=== PATIENT | male | born 1955 | race Caucasian/White ===

== ENCOUNTER 2016-08-29 16:41 | Inpatient (IN) ==
[2016-08-29] MEDS ORDERED: DILTIAZEM 25 MG/5 ML VIAL IV ONE (16:52)
[2016-08-29] MEDS ORDERED: DILTIAZEM 125 MG in 0.9 % SODIUM CHLORIDE 100 ML IV SCH (17:00)
--- NOTE | 2016-08-29 17:21 | XRay Report ---
CLINICAL INFORMATION: Arrhythmia TECHNIQUE: Upright AP portable chest x-ray COMPARISON: None. FINDINGS: Lungs are negative. No pulmonary parenchymal infiltrate or mass. Heart size and vascularity are normal. Bessy and mediastinum are negative. No pulmonary congestion or edema. Bessy and mediastinum are negative. No detectable pleural fluid IMPRESSION: Negative AP chest x-ray Interpreted and Authenticated by: Misha Hines 08/29/16
[2016-08-29 17:28] LABS: Basophils # (Auto) 0 K/mcL (0.0-0.3); Basophils % (Auto) 0.1 % (0.0-2.0); Eosinophils # (Auto) 0.2 K/mcL (0.0-0.7); Eosinophils % (Auto) 1.4 % (0.0-7.0); Granulocytes % (Auto) 86.9 % (38.0-78.0); Lymphocytes # (Auto) 0.7 K/mcL (1.5-4.8); Lymphocytes % (Auto) 5.2 % (15.5-49.0); Mean Cell Volume 95.7 fL (80.0-100.0); Mean Corpuscular HGB Conc 33.4 g/dL (31.0-36.0); Monocytes # (Auto) 0.9 K/mcL (0.1-0.9); Monocytes % (Auto) 6.4 % (1.0-9.0); Platelet Count 185 K/mcL (140-440); RBC 4.51 M/mcL (4.50-5.90); Red Cell Distribution Width 13.8 % (11.5-14.5)
[2016-08-29] MEDS ORDERED: ASPIRIN 81 MG TAB.CHEW CHEWED ONE (17:33)
[2016-08-29] MEDS ORDERED: 0.9 % SODIUM CHLORIDE 1,000 ML IV ONE (17:43)
[2016-08-29 17:56] LABS: ALT/SGPT 25 U/l (0-40); Albumin 4.4 gm/dL (3.2-5.2); Albumin/Globulin Ratio 1.8 (1.0-2.3); Alkaline Phosphatase 64 U/L (39-117); Blood Urea Nitrogen 11 mg/dl (8-23); Creatine Kinase 147 IU/L (24-195); Magnesium 1.8 mg/dL (1.6-2.5)
--- NOTE | 2016-08-29 18:20 | Emergency Department Note ---
Arrhythmia/Palpitations HPI - General Chief Complaint: Arrhythmia/Palpitations Stated Complaint: arrythmia Time Seen by Provider: 08/29/16 16:52 Source: patient Mode of arrival: ambulatory Limitations: no limitations - History of Present Illness HPI Narrative: 61-year-old male. He said he's been feeling some palpitations since yesterday. He was seen by Dr. Conner'S's office this morning, and patient was referred over to the ED for possible admission. As his EKG revealed atrial fibrillation.. PT has had no history previous of A. fib in the past. Denies any chest pain. States she's having some edema in his lower extremities.. he is afebrile. He is not on any blood thinners - Related Data Home Medications Medication Instructions Recorded Confirmed Allopurinol [Zylopriim] 300 mg PO ONCE 08/29/16 08/29/16 Losartan/Hydrochlorothiazide 1 each PO 08/29/16 [Losartan-Hctz 100-12.5 mg Tab] Omeprazole [Prilosec] 08/29/16 Sildenafil Citrate [Viagra] 100 mg PO PRN 08/29/16 Testosterone Cypionate 200 mg IM ONCE 08/29/16 08/29/16 [Depo-Testosterone] amLODIPine [Norvasc] 5 mg PO ONCE 08/29/16 08/29/16 Allergies Allergy/AdvReac Type Severity Reaction Status Date / Time No Known Drug Allergies Allergy Verified 08/29/16 16:46 Review of Systems All systems ED: reviewed and negative except as stated. Constitutional: Denies: fever, chills Eyes: Denies: eye pain ENT ED: Denies: ear pain, throat pain Cardiovascular: Reports: palpitations, edema. Denies: chest pain, dyspnea on exertion, orthopnea, syncope Respiratory: Denies: cough, dyspnea Gastrointestinal: Denies: abdominal pain Genitourinary: Denies: urgency Musculoskeletal: Denies: back pain Integumentary: Denies: rash Neurological: Denies: headache Psychiatric: Denies: anxiety Endocrine: Denies: fatigue Hematological/Lymphatic: Denies: easy bleeding Allergic/Immunologic: Denies: facial swelling Past Medical History - Past Medical History Medical history: Reports: GERD, hypertension Surgical history ED: Reports: other (left thumb) - Social History smoking status: Former smoker Alcohol use: Reports: Occasionally Drug use: Reports: none Physical Exam - General Limitations: no limitations General appearance: alert - Head Head exam: atraumatic, normocephalic - Eye Eye exam: Present: normal appearance, PERRL - ENT ENT exam: normal exam, normal oropharynx - Neck Neck exam: Present: normal inspection, full ROM, trachea midline - Chest Chest inspection: Present: normal inspection, symmetric chest wall rise - Respiratory Respiratory exam: Present: normal lung sounds bilaterally, respiratory distress , wheezes - Cardiovascular Cardiovascular exam: Present: regular rate, normal rhythm. Absent: bradycardia , tachycardia - Abdominal Exam Abdominal exam: Present: soft, distention. Absent: tenderness, guarding - Extremities Exam Extremities exam: Present: normal inspection, full ROM - Back Exam Back exam: Present: normal inspection, full ROM - Neurological Exam Neurological exam: Present: alert - Psychiatric Psychiatric exam: Present: normal affect, normal mood - Skin Skin exam: Present: warm, dry Course Vital Signs Temperature 99.6 F 08/29/16 16:42 Pulse Rate 117 H 08/29/16 16:42 Respiratory Rate 18 08/29/16 16:42 Blood Pressure 135/80 08/29/16 16:42 Pulse Oximetry (%) 99 08/29/16 16:42 Temperature 99.6 F 08/29/16 16:42 Pulse Rate 86 08/29/16 18:07 Respiratory Rate 21 08/29/16 18:07 Blood Pressure 107/74 08/29/16 18:07 Pulse Oximetry (%) 97 08/29/16 18:07 Arrhythmia/Palpitations - [facility] Narrative Medical decision making narrative: Patient given rectal exam 10 mg bolus and put on a drip's heart rate is down to the 80s and 90s. Cardiac work up is negative. Chest x-ray normal. Dr. Benjamin contacted. PT to be admitted to telemetry - Lab Data Result diagrams: 08/29/16 16:58 08/29/16 16:58 Lab Results 08/29/16 08/29/16 08/29/16 Range/Units 16:58 16:58 16:58 WBC 13.9 H (4.5-11.0) K/mcL RBC 4.51 (4.50-5.90) M/mcL Hgb 14.4 (13.5-16.5) g/dL Hct 43.1 (41.0-55.0) % MCV 95.7 (80.0-100.0) fL MCH 32.0 (26.0-34.0) pg MCHC 33.4 (31.0-36.0) g/dL RDW 13.8 (11.5-14.5) % Plt Count 185 (140-440) K/mcL MPV 7.4 (7.4-10.4) fL Gran % 86.9 H (38.0-78.0) % Lymph % (Auto) 5.2 L (15.5-49.0) % [place] % (Auto) 6.4 (1.0-9.0) % Eos % (Auto) 1.4 (0.0-7.0) % Baso % (Auto) 0.1 (0.0-2.0) % Gran # 12.1 H (1.8-8.0) K/mcL Lymph # 0.7 L (1.5-4.8) K/mcL [place] # 0.9 (0.1-0.9) K/mcL Eos # 0.2 (0.0-0.7) K/mcL Baso # 0 (0.0-0.3) K/mcL PT 13.2 (11.9-14.5) sec INR 1.0 (0.9-1.1) Sodium 133 (133-145) mmol/L Potassium 3.7 (3.3-5.1) mmol/L Chloride 96 (96-108) mmol/L Carbon Dioxide 24 (22-30) mmol/L Anion Gap 13.0 (8-16) BUN 11 (8-23) mg/dl Creatinine 1.0 (0.7-1.2) mg/dl GFR Calculation 80 Glucose 102 (70-105) mg/dL Calcium 8.7 (8.6-10.4) mg/dl Magnesium 1.8 (1.6-2.5) mg/dL Total Bilirubin 1.2 H (0.0-1.0) mg/dL AST 25 (0-37) U/l ALT 25 (0-40) U/l Alkaline Phosphatase 64 (39-117) U/L Total Creatine Kinase 147 (24-195) IU/L CK-MB (CK-2) 2.0 (0-4.9) ng/ml Troponin T (0-0.03) ng/ml Total Protein 6.9 (5.9-8.4) gm/dL Albumin 4.4 (3.2-5.2) gm/dL Globulin 2.5 (2.2-3.7) gm/dL Albumin/Globulin Ratio 1.8 (1.0-2.3) 08/29/16 Range/Units 16:58 WBC (4.5-11.0) K/mcL RBC (4.50-5.90) M/mcL Hgb (13.5-16.5) g/dL Hct (41.0-55.0) % MCV (80.0-100.0) fL MCH (26.0-34.0) pg MCHC (31.0-36.0) g/dL RDW (11.5-14.5) % Plt Count (140-440) K/mcL MPV (7.4-10.4) fL Gran % (38.0-78.0) % Lymph % (Auto) (15.5-49.0) % [place] % (Auto) (1.0-9.0) % Eos % (Auto) (0.0-7.0) % Baso % (Auto) (0.0-2.0) % Gran # (1.8-8.0) K/mcL Lymph # (1.5-4.8) K/mcL [place] # (0.1-0.9) K/mcL Eos # (0.0-0.7) K/mcL Baso # (0.0-0.3) K/mcL PT (11.9-14.5) sec INR (0.9-1.1) Sodium (133-145) mmol/L Potassium (3.3-5.1) mmol/L Chloride (96-108) mmol/L Carbon Dioxide (22-30) mmol/L Anion Gap (8-16) BUN (8-23) mg/dl Creatinine (0.7-1.2) mg/dl GFR Calculation Glucose (70-105) mg/dL Calcium (8.6-10.4) mg/dl Magnesium (1.6-2.5) mg/dL Total Bilirubin (0.0-1.0) mg/dL AST (0-37) U/l ALT (0-40) U/l Alkaline Phosphatase (39-117) U/L Total Creatine Kinase (24-195) IU/L CK-MB (CK-2) (0-4.9) ng/ml Troponin T < 0.01 (0-0.03) ng/ml Total Protein (5.9-8.4) gm/dL Albumin (3.2-5.2) gm/dL Globulin (2.2-3.7) gm/dL Albumin/Globulin Ratio (1.0-2.3) Disposition Clinical Impression: New onset atrial fibrillation Disposition: Xfer As Inpt ([facility]) Condition: Fair Referrals: Justo Conner DO [Primary Care Provider] -
[2016-08-29] MEDS ORDERED: MAGNESIUM SULFATE 2 GM/50 ML BAG IV PRN (19:52)
[2016-08-29] MEDS ORDERED: ONDANSETRON 4 MG/2 ML VIAL IV PRN (19:52)
[2016-08-29] MEDS ORDERED: POTASSIUM CHLORIDE 40 MEQ in DEXTROSE 5% IN WATER 500 ML IV PRN (19:52)
[2016-08-29] MEDS ORDERED: guaiFENesin/CODEINE 10 ML UDC PO PRN (19:52)
[2016-08-29] MEDS ORDERED: IPRATROPIUM/ALBUTEROL 3 ML AMPUL.NEB NEB PRN (19:52)
[2016-08-29] MEDS: ENOXAPARIN 80 MG/0.8 ML SYRINGE SQ SCH (20:51)
[2016-08-29] MEDS: DOCUSATE SODIUM 100 MG CAPSULE PO SCH (20:58)
[2016-08-29] MEDS: SENNOSIDES/DOCUSATE SODIUM 1 TAB TABLET PO SCH (20:58)
[2016-08-29] MEDS: FLECAINIDE 100 MG TABLET PO SCH ×2 (20:59)
[2016-08-29] MEDS ORDERED: HEPARIN 5,000 UNIT/ML VIAL SQ SCH (21:00)
[2016-08-29] MEDS: METOPROLOL TARTRATE 5 MG/5 ML VIAL IV SCH ×2 (21:35→21:36)
[2016-08-29] MEDS: amLODIPine 5 MG TABLET PO SCH (21:36)
[2016-08-29] MEDS: ALLOPURINOL 300 MG TABLET PO SCH (21:37)
[2016-08-29] MEDS: 0.9 % SODIUM CHLORIDE 10 ML SYRINGE IV SCH (21:38)
--- NOTE | 2016-08-29 22:39 | History and Physical Report ---
DATE OF ADMISSION: 08/29/2016 PRIMARY CARE PHYSICIAN: Justo Conner DO HISTORY OF CHIEF COMPLAINT: Mr. Meyer is a 61-year-old who was referred from primary care physician's office with atrial fibrillation with rapid heart rate, shortness of breath and bilateral lower extremity swelling. In the ER, initial workup was significant for atrial fibrillation with RVR. The patient was started on diltiazem drip. Initial troponins were negative, unclear precipitant. Hospitalist Service was consulted. At the time of examination, the patient is accompanied with his girlfriend and daughter and was able to provide most of the history. He does not appear to be significantly short of breath or in distress. He denies chest pain, fever, recent headache, photophobia, diarrhea, dysuria, or bloody stool. He does endorse to bilateral lower extremity swelling that has worsened since last night. He also endorses to calf tenderness and redness extending up to both ankles, right more than left. He denies binge alcoholism. He denies substance abuse or prior similar episodes of chest palpitations or shortness of breath. He denies recent lower extremity trauma, weight loss, or glandular swelling. REVIEW OF SYSTEMS: Ten-point review of system was performed and negative except the ones discussed above. PAST MEDICAL HISTORY: 1. History of hypertension. 2. History of gout. 3. GERD. CURRENT MEDICATIONS: 1. Losartan 100. 2. Diltiazem 100/12.5. 3. Omeprazole. 4. Allopurinol 300 once. 5. Depo-Testosterone. 6. Amlodipine 5 mg. SOCIAL HISTORY: The patient lives and works in [place]. He is DO NOT RESUSCITATE. No history of smoking. Drinks 2 beers a day. 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 FAMILY HISTORY: Significant for coronary artery disease in mother along with congestive heart failure/arrhythmia. ALLERGIES: NONE SIGNIFICANT. PHYSICAL EXAMINATION: GENERAL: The patient is alert, oriented, in no significant distress. BMI 27. Height 5 feet 10 inches. VITAL SIGNS: Blood pressure 107/74, respiratory rate 21, temperature 98.5. Pulse variable between 80s to 90s, down from 130s. Currently on diltiazem drip. HEENT: Eye movements normal. No ear or nose discharge. Oral cavity dry. NECK: No lymphadenopathy. CHEST: S1, S2, irregular rhythm. No murmur. Diminished breath sounds at bases, but no crackles, adventitious sounds. ABDOMEN: Soft, nontender. LOWER EXTREMITY EXAMINATION: Bilateral lower extremity: Redness around the calf and minimal lymphedema, right more than left, along with ankle swelling, more prominent around the right lateral malleolus. __ ankle movement due to tenderness, but no other joint swelling or erythema. SKIN: No suspicious lesions. PSYCHIATRIC: Alert, cooperative. No anxiety, agitation. NEURO EXAMINATION: Moving all 4 extremities. Limited neuro exam. Normal higher function. LABS AND IMAGING: White count 13.9, hemoglobin 14.4, platelets 185. INR 1. Sodium __, potassium 3.7, creatinine 1, BUN 11. Troponin negative. LFTs unremarkable. X-ray chest: Negative. EKG: Atrial fibrillation with RVR. ASSESSMENT AND PLAN: A 61-year-old admitted with atrial fibrillation with rapid ventricular response. 1. Atrial fibrillation with rapid ventricular response. Continue rate control measures. Attempt cardioversion given onset since last evening on flecainide. Echocardiogram to evaluate chamber size and valvular architecture. Check TSH to rule out other precipitant including pulmonary embolism. Discussed cardioversion with flecainide. If fails until tomorrow afternoon, we will attempt to consult cardiology for electrical cardioversion at [place]. Start full dose anticoagulation now. CHADS score 2. 2. Bilateral lower extremity redness along calf tenderness. Rule out deep vein thrombosis with Doppler ultrasound. Start full dose anticoagulation empiric as likely precipitant for atrial fibrillation. 3. History of hypertension. Continue prior home medications with holding parameters. 4. History of gout. Continue allopurinol. PLAN FOR TODAY: 1. Admit as observation. 2. Telemonitoring. 3. Full dose anticoagulation. 4. Lower extremity Dopplers. 5. Rate control measures along with flecainide for cardioversion. AA:marian Job ID: [id number] Doc ID: [id number] Inocente [email or web address]
[2016-08-29] MEDS: traZODone HCL 50 MG TABLET PO PRN (22:52)
[2016-08-30] MEDS: ACETAMINOPHEN 325 MG TABLET PO PRN ×3 (03:42→17:07)
[2016-08-30] MEDS: 0.9 % SODIUM CHLORIDE 10 ML SYRINGE IV SCH ×3 (04:03→23:01)
[2016-08-30] MEDS ORDERED: DILTIAZEM 125 MG in 0.9 % SODIUM CHLORIDE 100 ML IV SCH (05:00)
[2016-08-30 05:34] LABS: Mean Cell Volume 95.6 fL (80.0-100.0); Mean Corpuscular HGB Conc 33.6 g/dL (31.0-36.0); Mean Corpuscular Hemoglobin 32.1 pg (26.0-34.0); Platelet Count 168 K/mcL (140-440); RBC 4.17 M/mcL (4.50-5.90); Red Cell Distribution Width 13.6 % (11.5-14.5)
--- NOTE | 2016-08-30 06:04 | Ultrasound Report ---
CLINICAL INFORMATION: Lower extremity pain and swelling TECHNIQUE: Grayscale and color flow spectral imaging COMPARISON: None. FINDINGS: Negative examination for deep venous thrombosis. Common femoral vein, superficial femoral vein, popliteal vein are negative bilaterally. Calf veins are negative. Greater and lesser saphenous veins are negative. IMPRESSION: Negative examination for deep venous thrombosis. Interpreted and Authenticated by: Misha Hines 08/30/16
[2016-08-30 06:15] LABS: proBNP 641.9 pg/ml (0-125)
[2016-08-30 06:19] LABS: Free T4 (Free Thyroxine) 1.01 ng/dl (0.7-1.7)
[2016-08-30 06:34] LABS: ALT/SGPT 21 U/l (0-40); Albumin 3.8 gm/dL (3.2-5.2); Albumin/Globulin Ratio 1.5 (1.0-2.3); Alkaline Phosphatase 63 U/L (39-117); Bilirubin,Direct 0.3 mg/dL (0.0-0.3); Blood Urea Nitrogen 12 mg/dl (8-23); Gamma Glutamyl Transpeptidase 113 U/L (8-61); Magnesium 1.9 mg/dL (1.6-2.5); Phosphorous 1.2 mg/dL (2.7-4.5)
[2016-08-30 07:02] LABS: Band Neutrophils % 3 % (0-10); Lymphocytes % 5 % (15-49); Monocytes % (Manual) 4 % (1-9); Platelet Estimate NORMAL (NORMAL); RBC Morphology NORMAL (NORMAL); Segmented Neutrophils % 88 % (38-78)
[2016-08-30] MEDS ORDERED: OMEPRAZOLE 20 MG CAPSULE PO SCH (07:30)
[2016-08-30] MEDS: PANTOPRAZOLE 40 MG TABLET PO SCH ×2 (07:36→17:14)
[2016-08-30] MEDS: MULTIVIT,THER IRON,CA,FA & MIN 1 TABLET PO SCH (08:36)
[2016-08-30] MEDS: DOCUSATE SODIUM 100 MG CAPSULE PO SCH ×2 (08:36→20:30)
[2016-08-30] MEDS: ENOXAPARIN 80 MG/0.8 ML SYRINGE SQ SCH ×2 (08:36→20:30)
[2016-08-30] MEDS ORDERED: VANCOMYCIN PER PHARMACY IV ONE (08:55)
[2016-08-30] MEDS ORDERED: FLECAINIDE 50 MG TABLET PO SCH (09:00)
[2016-08-30] MEDS: NEUTRA PHOS 1 PACKET PO SCH ×2 (10:11→20:31)
[2016-08-30] MEDS: cefTRIAXone 2 GM in DEXTROSE 5% IN WATER 50 ML IV SCH (10:12)
[2016-08-30 10:32] LABS: Appearance,Urine CLEAR; Bacteria,Urine 0 /hpf (0); Bilirubin,Urine NEG (NEG); Color,Urine YELLOW; Glucose,Urine (UA) 50 mg/dL (NEG); Leukocyte Esterase,Urine NEG /uL (NEG); Mucus,Urine FEW /hpf (0); Nitrate,Urine NEG (NEG); Protein,Urine NEG (NEG); Specific Gravity,Urine 1.026 (1.000-1.035); Urine Blood 0.03 mg/dL (<0.03); Urine RBC 2 /hpf (0-1); Urine Squamous Epithelial Cell < 1 /hpf (0-4); Urine Transitional Epi Cells < 1 /hpf (0-2); Urine WBC 2 /hpf (0-4); Urobilinogen,Urine NEG (NEG)
[2016-08-30] MEDS: VANCOMYCIN 1,250 MG in 0.9 % SODIUM CHLORIDE 500 ML IV SCH ×2 (10:42→20:31)
--- NOTE | 2016-08-30 11:08 | Internal Med Progress Note ---
Medical - PN: Subj Patient information: Note initiated : 08/30/16 at 11:05 am Service Date, if different from initiated Date: [] Patient: Panda Meyer 61 y/o M admitted on 08/29/16 for Arrythmia/AFib with RVR. Chief Complaint: [] Interval history: 08/29- patient admitted with lower extremity swelling pain and chest palpitation. A. fib RVR started on diltiazem drip. New onset within 48 hours. On full dose anticoagulation. We will attempt cardioversion on flecainide. No S3 Dopplers to rule out DVT. White count 13,000 unclear source. Cultures/ UA. Patient admitted to telemetry. Heart failure improved on diltiazem drip from 140s to mid 80s 08/30-Doppler lower extremity unremarkable for DVT. White count at 14,000. Blood cultures pending. Empiric antibiotics vancomycin and Rocephin. Overnight MAXIMUM TEMPERATURE 102. Patient denies any other symptoms including diarrhea dysuria abdominal pain chest pain nausea. Family at bedside. Status post flecainide but persistent A. fib on telemetry. We'll attempt electrical cardioversion at [place] if patient fails to respond to flecainide. Aggressive source evaluation for sepsis - Constitutional Vitals: Vital Signs Temp Pulse Resp BP Pulse Ox 100.3 F H 91 H 18 130/73 94 08/30/16 10:52 08/30/16 10:00 08/30/16 10:52 08/30/16 10:52 08/30/16 10:52 Period Temp Pulse Resp BP Sys/Moralez Pulse Ox Last 24 Hr 98.2 F-102.3 F 76-105 16-22 92-130/56-76 93-98 Intake and Output 08/29/16 08/30/16 08/30/16 21:59 05:59 13:59 Intake Total 240 / 240 Output Total 550 / 550 500 / 500 Balance -550 / -293 -260 / -260 Weight 193 lb Intake & Output: Intake & Output 08/29/16 08/30/16 08/30/16 21:59 05:59 13:59 Intake Total 240 / 240 Output Total 550 / 550 500 / 500 Balance -550 / -293 -260 / -260 Weight 193 lb Intake: Oral 240 / 240 Output: Void Amount 550 / 550 500 / 500 Other: # Bowel Movements 1 General appearance: cooperative, no acute distress Exam: alert oriented telemetry A. fib Nonlabored breathing Nondistended abdomen Redness and erythema bilateral lower extremity below the knee up to ankle along with minimal emphysema No anxiety Medical - PN: Obj Da - Labs CBC & Chem 7: 08/30/16 04:15 08/30/16 04:15 Labs: Abnormal Lab Results 08/30/16 08/30/16 08/30/16 09:51 04:15 04:15 WBC 14.0 H RBC 4.17 L Hgb 13.4 L Hct 39.9 L Seg Neutrophils % 88 H Lymphocytes % 5 L Carbon Dioxide 21 L Glucose 122 H Calcium 8.4 L Phosphorus 1.2 L Total Bilirubin 1.2 H GGT 113 H NT-Pro-B Natriuret Pep 641.9 H Urine Glucose (UA) 50 A Urine Ketones 20 A Urine Occult Blood 0.03 A Urine RBC 2 H Meds: Medications Acetaminophen (Tylenol) 650 mg PO Q4-6HP PRN PRN Reason: PAIN/FEVER > 101 Last Admin: 08/30/16 03:42 Dose: 650 mg Albuterol/Ipratropium (Duoneb) 3 ml NEB Q4HP PRN PRN Reason: Shortness Of Breath Allopurinol (Zylopriim) 300 mg PO ONCE [facility] Last Admin: 08/29/16 21:37 Dose: Not Given Amlodipine Besylate (Norvasc) 5 mg PO ONCE [facility] Last Admin: 08/29/16 21:36 Dose: Not Given Docusate Sodium (Colace) 100 mg PO BID [facility] Last Admin: 08/30/16 08:36 Dose: 100 mg Enoxaparin Sodium (Lovenox) 80 mg SQ BID [facility] Last Admin: 08/30/16 08:36 Dose: 80 mg Flecainide Acetate (Tambocor) 100 mg PO Q12 [facility] Last Admin: 08/30/16 08:39 Dose: 100 mg Guaifenesin/Codeine Phosphate (Robitussin Ac) 10 ml PO Q4HP PRN PRN Reason: Cough Diltiazem HCl 125 mg/ Sodium (Chloride) 125 mls @ 5 mls/hr IV Q12H ESTHER; 5 MG/HR PRN Reason: Protocol Last Admin: 08/30/16 04:03 Dose: Not Given Potassium Chloride 40 meq/ (Dextrose) 520 mls @ 130 mls/hr IV UD PRN PRN Reason: K+ = or < 3.5 Last Admin: 08/30/16 07:35 Dose: 130 mls/hr Magnesium Sulfate (Magnesium Sulfate) 2 gm in 50 mls @ 50 mls/hr IV UD PRN PRN Reason: MG = or < 1.7 Ceftriaxone Sodium 2 gm/ (Dextrose) 50 mls @ 100 mls/hr IV Q24H [facility] Last Admin: 08/30/16 10:12 Dose: 100 mls/hr Vancomycin HCl 1,250 mg/ (Sodium Chloride) 500 mls @ 250 mls/hr IV Q12 [facility] Last Admin: 08/30/16 10:42 Dose: 333.3 mls/hr Iron Carb/Multivit/Esto/Folic Acid (Multivitamin W/Minerals) 1 tab PO DAILY [facility] Last Admin: 08/30/16 08:36 Dose: 1 tab Ondansetron HCl (Zofran) 4 mg IV Q4-6HP PRN PRN Reason: Nausea And Vomiting Pantoprazole Sodium (Protonix) 40 mg PO BIDAC [facility] Last Admin: 08/30/16 07:36 Dose: 40 mg Potassium/Phosphorus/Sodium (Neutra Phos) 2 packet PO BID [facility] Last Admin: 08/30/16 10:11 Dose: 2 packet Senna/Docusate Sodium (Senna Plus Tablet) 1 tab PO HS [facility] Last Admin: 08/29/16 20:58 Dose: 1 tab Sodium Chloride (Saline Flush) 10 ml IV Q8 [facility] Last Admin: 08/30/16 04:03 Dose: Not Given Trazodone HCl (Desyrel) 50 mg PO HSP PRN PRN Reason: Insomnia Last Admin: 08/29/16 22:52 Dose: 50 mg Medical - PN: A/P - Time Spent With Patient Total time spent is greater than 50% in coordination of care (as documented) at patient's floor/unit and/or counseling patient: 25 - 35 minutes (1) Atrial fibrillation with RVR Status: Acute Assessment and plan: * new onset atrial fibrillationwith RVR-rate controlled on diltiazem drip. Started on flecainide for cardioversion. Continue full dose anticoagulation * sepsis-unclear source. Cultures pending. Influenza negative. Empiric antibiotic coverage. White count 14,000 * Bilateral lower extremity redness- negative DVT. * hypertension-meds on hold. On calcium channel neftaly drip * history of gout continue allopurinol * DNR Plan * continue antibiotics * Sepsis source evaluation * If chemical cardioversion fails transfer to [place] for electrical cardioversion/cardio consult * Current Visit: Yes Medical - PN: Qual - VTE Deep Vein Thrombosis/Pulmonary Embolism Present on Admission: No
[2016-08-30] MEDS ORDERED: IOPAMIDOL 100 ML BOTTLE IV ONE (13:30)
--- NOTE | 2016-08-30 13:42 | Cat Scan Report ---
CLINICAL INFORMATION: Dyspnea. COMPARISON: Chest x-ray dated 08/29/2016 TECHNIQUE: Axial images obtained through the chest. 80 mL nonionic intravenous contrast administration was administered, and scanning was performed during pulmonary arterial phase. Sagittally and coronally reformatted images were obtained. MIP reformatted images. FINDINGS: Main pulmonary artery, right pulmonary, left pulmonary artery are negative. No intraluminal filling defects. No lobar, segmental, or subsegmental defects. Mild linear densities at both lung bases consistent with atelectasis or scarring. Lungs are otherwise negative. No focal consolidation. No evidence for neoplasm. No hilar or mediastinal adenopathy. There are coronary artery calcifications. No pleural fluid. No pericardial fluid. No axillary adenopathy. Images through the upper abdomen are negative. IMPRESSION: Negative pulmonary CTA Interpreted and Authenticated by: Misha Hines 08/30/16
[2016-08-30] MEDS: AMIODARONE 150 MG in DEXTROSE 5% IN WATER 50 ML IV ONE ×2 (15:07→17:12)
[2016-08-30] MEDS ORDERED: AMIODARONE HCL 450 MG in DEXTROSE 5% IN WATER (NON-PVC) 241 ML IV SCH ×2 (15:30→21:30)
[2016-08-30] MEDS: SENNOSIDES/DOCUSATE SODIUM 1 TAB TABLET PO SCH (20:30)
[2016-08-30] MEDS: ALLOPURINOL 300 MG TABLET PO SCH (20:30)
[2016-08-30] MEDS: amLODIPine 5 MG TABLET PO SCH (20:32)
[2016-08-30] MEDS ORDERED: PROPOFOL 0 ML IV ONE (23:06)
[2016-08-31 05:49] LABS: Mean Cell Volume 97.1 fL (80.0-100.0); Mean Corpuscular HGB Conc 33.7 g/dL (31.0-36.0); Mean Corpuscular Hemoglobin 32.7 pg (26.0-34.0); Platelet Count 134 K/mcL (140-440); RBC 3.92 M/mcL (4.50-5.90); Red Cell Distribution Width 13.7 % (11.5-14.5)
[2016-08-31 06:33] LABS: ALT/SGPT 17 U/l (0-40); Albumin 3.3 gm/dL (3.2-5.2); Albumin/Globulin Ratio 1.2 (1.0-2.3); Alkaline Phosphatase 60 U/L (39-117); Bilirubin,Direct 0.3 mg/dL (0.0-0.3); Blood Urea Nitrogen 9 mg/dl (8-23); Gamma Glutamyl Transpeptidase 132 U/L (8-61); Magnesium 2.1 mg/dL (1.6-2.5); Phosphorous 2.2 mg/dL (2.7-4.5); Uric Acid 3.8 mg/dL (2.5-8.0)
[2016-08-31] MEDS: PANTOPRAZOLE 40 MG TABLET PO SCH ×2 (07:17→17:22)
[2016-08-31] MEDS: 0.9 % SODIUM CHLORIDE 10 ML SYRINGE IV SCH ×3 (07:17→20:58)
--- NOTE | 2016-08-31 07:22 | XRay Report ---
CLINICAL INFORMATION: Arrhythmia. Atrial fibrillation. Possible congestive heart failure. TECHNIQUE: AP portable chest x-ray COMPARISON: Previous chest x-ray dated 08/29/2016 FINDINGS: Lungs are negative. No parenchymal infiltrate or mass. Heart size and vascularity are normal. No pulmonary congestion. No pulmonary edema. No interval change IMPRESSION: Negative AP chest x-ray Interpreted and Authenticated by: Misha Hines 08/31/16
[2016-08-31 07:50] LABS: Band Neutrophils % 7 % (0-10); Lymphocytes % 8 % (15-49); Monocytes % (Manual) 4 % (1-9); Platelet Estimate NORMAL (NORMAL); RBC Morphology NORMAL (NORMAL); Segmented Neutrophils % 81 % (38-78)
[2016-08-31] MEDS: cefTRIAXone 2 GM in DEXTROSE 5% IN WATER 50 ML IV SCH (09:00)
[2016-08-31] MEDS: ENOXAPARIN 80 MG/0.8 ML SYRINGE SQ SCH ×2 (09:23→20:22)
[2016-08-31] MEDS: DOCUSATE SODIUM 100 MG CAPSULE PO SCH ×2 (09:23→20:22)
[2016-08-31] MEDS: VANCOMYCIN 1,250 MG in 0.9 % SODIUM CHLORIDE 500 ML IV SCH ×2 (09:23→20:58)
[2016-08-31] MEDS: MULTIVIT,THER IRON,CA,FA & MIN 1 TABLET PO SCH (09:23)
[2016-08-31] MEDS: NEUTRA PHOS 1 PACKET PO SCH ×2 (09:23→20:21)
--- NOTE | 2016-08-31 10:30 | Echocardiogram Report ---
ECHOCARDIOGRAM: 2-D and M-mode echocardiography with cardiac Doppler and color flow imaging were performed with a [employer]io MX. Indication is new onset atrial fibrillation. Overall size of the RA, RV, LV, and aortic root appeared normal. LV wall thickness appeared high normal. Systolic performance appeared normal. Estimated ejection fraction is 65%. The LA appeared mildly enlarged. The aortic valve appeared trileaflet and normal. There was no evidence for aortic stenosis by Doppler interrogation. Aortic regurgitation, probably mild (1+), was demonstrated. The mitral and tricuspid valves appeared unremarkable. Doppler interrogation of LV inflow disclosed a monophasic spectral dispersion pattern related to absent AV synchrony. Mitral regurgitation, probably moderate, (2+), was noted. Color flow imaging disclosed the regurgitant jet cling to the atrial aspect of the anterior leaflet. Pulmonary venous interrogation disclosed ''d'' wave dominance indicating elevated pulmonary wedge pressure. The pulmonic valve was not visualized. Pulmonary artery acceleration time appeared shortened. There was no evidence for pulmonic stenosis. Pulmonic regurgitation and tricuspid regurgitation, both probably mild (1+), were noted. No intracardiac shunting was appreciated. There was no evidence for pericardial effusion. The IVC was dilated and did not vary with the respiratory cycle indicating raised CVP. Calculated estimate of PA systolic pressure is moderately elevated at 45-50 mmHg. Atrial fibrillation with a moderate response was present. CONCLUSION:Aortic regurgitation, probably mild (1+). Eccentric/anteriorly directed mitral regurgitation, probably moderate (2+), with mild LA enlargement, elevated pulmonary wedge pressure, moderate and probably passive pulmonary hypertension, and raised CVP. (See accompanying M-mode and Doppler reports for quantitation.) ECHOCARDIOGRAPHY M-MODE CALCULATIONS: HT: 70'' WT: 193 BSA: 2.06 m2 NORMALS AORTA: AORTIC ROOT 3.5 2.0-3.7 cm LEFT ATRIUM 5.0 1.9-4.0 cm MITRAL VALVE: EXCURSION 2.1 1.9-2.7 cm EPSS 0.3 <0.5 cm LT VENTRICLE: LVID (ED) 4.8 3.5-5.7 cm LVID (ES) 3.2 SEPTAL THICKNESS 1.2 0.6-1.1 cm SEPTAL EXCURSION 0.4 0.3-0.8 cm LVPW THICKNESS 1.1 0.6-1.1 cm LVPW EXCURSION 1.0 0.9-1.4 cm MINOR AXIS FS 3.3 25%-40% RT VENTRICLE: RVID (ED) -- 0.9-2.6 cm(up to 3cm if LLD) QUALITATIVE DOPPLER FLOW STUDIES MITRAL VALVE MR, probably moderate (2+) AORTIC VALVE AR, probably mild (1+) TRICUSPID VALVE TR, probably mild (1+) PULMONIC VALVE NC, probably mild (1+) QUANTITATIVE DOPPLER FLOW STUDIES SAMPLE SITES VELOCITIES PEAK PRESSURE VALVE AREA and/or VALVE WINDOW (PEAK,M/SEC) DROP (GRADIENT) PRESSURE HALF-TIME MV (Diastole) 1.6 -- -- MV (Systole) 4.0 -- -- AO (Diastole) 3.3 -- 420 msec AO (Systole) 1.2 -- -- TV (Systole) 2.5 -- -- PV (Systole) 1.0 -- -- PV (Diastole) 1.7 LWG:lidia Job ID: [id number] Doc ID: [id number] Alistair Julian MD
--- NOTE | 2016-08-31 12:56 | XRay Report ---
CLINICAL INFORMATION: Abdominal pain TECHNIQUE: AP, supine abdomen COMPARISON: None. FINDINGS: Gas and fecal material within the colon. No dilated gas-filled small bowel. No pneumatosis. No biliary or portal venous gas. No pathologic calcifications. IMPRESSION: Negative supine abdomen Interpreted and Authenticated by: Misha Hines 08/31/16
[2016-08-31] MEDS: WARFARIN 5 MG TABLET PO SCH (17:22)
[2016-08-31 19:37] LABS: Amylase 40 U/L (28-100); Lipase 41 U/L (7-60)
[2016-08-31] MEDS: amLODIPine 5 MG TABLET PO SCH (20:22)
[2016-08-31] MEDS: METOPROLOL TARTRATE 25 MG TABLET PO SCH (20:22)
[2016-08-31] MEDS: ALLOPURINOL 300 MG TABLET PO SCH (20:23)
[2016-08-31] MEDS: SENNOSIDES/DOCUSATE SODIUM 1 TAB TABLET PO SCH (20:25)
[2016-08-31] MEDS: traZODone HCL 50 MG TABLET PO PRN (20:25)
[2016-08-31] MEDS: ACETAMINOPHEN 325 MG TABLET PO PRN (23:10)
[2016-09-01] MEDS: 0.9 % SODIUM CHLORIDE 10 ML SYRINGE IV SCH (05:55)
[2016-09-01 06:14] LABS: Mean Cell Volume 96.8 fL (80.0-100.0); Mean Corpuscular HGB Conc 33.5 g/dL (31.0-36.0); Mean Corpuscular Hemoglobin 32.4 pg (26.0-34.0); Platelet Count 180 K/mcL (140-440); RBC 4.12 M/mcL (4.50-5.90); Red Cell Distribution Width 13.8 % (11.5-14.5)
[2016-09-01 06:55] LABS: ALT/SGPT 19 U/l (0-40); Albumin 3.3 gm/dL (3.2-5.2); Albumin/Globulin Ratio 1.1 (1.0-2.3); Alkaline Phosphatase 81 U/L (39-117); Bilirubin,Direct < 0.2 mg/dL (0.0-0.3); Blood Urea Nitrogen 7 mg/dl (8-23); Gamma Glutamyl Transpeptidase 176 U/L (8-61); Magnesium 2.1 mg/dL (1.6-2.5); Phosphorous 3.3 mg/dL (2.7-4.5)
[2016-09-01 07:00] LABS: Band Neutrophils % 2 % (0-10); Basophils % (Manual) 1 % (0-2); Eosinophils % (Manual) 4 % (0-7); Lymphocytes % 13 % (15-49); Monocytes % (Manual) 11 % (1-9); Myelocytes % 1 % (0-0); Platelet Estimate NORMAL (NORMAL); RBC Morphology NORMAL (NORMAL); Segmented Neutrophils % 67 % (38-78)
[2016-09-01] MEDS ORDERED: IOPAMIDOL 100 ML BOTTLE IV ONE (08:46)
[2016-09-01] MEDS: MULTIVIT,THER IRON,CA,FA & MIN 1 TABLET PO SCH (09:08)
[2016-09-01] MEDS: ENOXAPARIN 80 MG/0.8 ML SYRINGE SQ SCH (09:08)
[2016-09-01] MEDS: METOPROLOL TARTRATE 25 MG TABLET PO SCH (09:08)
[2016-09-01] MEDS: cefTRIAXone 2 GM in DEXTROSE 5% IN WATER 50 ML IV SCH (09:09)
[2016-09-01] MEDS: NEUTRA PHOS 1 PACKET PO SCH (09:09)
[2016-09-01] MEDS: PANTOPRAZOLE 40 MG TABLET PO SCH (09:09)
[2016-09-01] MEDS: VANCOMYCIN 1,250 MG in 0.9 % SODIUM CHLORIDE 500 ML IV SCH (09:10)
--- NOTE | 2016-09-01 09:46 | Cat Scan Report ---
CLINICAL INFORMATION: Right upper quadrant pain COMPARISON: None. TECHNIQUE: Axial images were obtained through the abdomen and pelvis. Sagittally and coronally reformatted images. 80 mL nonionic contrast material injected intravenously. Oral contrast material was administered FINDINGS: Lung bases are negative. No parenchymal consolidation. There is mild bilateral dependent atelectasis. No hiatal hernia. No significant pleural effusion. No pericardial effusion. No calcified gallstones. There is mild pericholecystic inflammatory change suggesting possible cholecystitis. Gallbladder ultrasound is recommended. Common bile duct measures 7 to 8 mm. No detectable choledocholithiasis. No intrahepatic bile duct dilatation. Negative liver. No focal intrahepatic abnormality. Normal smooth liver contour. Spleen is negative. No splenomegaly. Normal enhancement splenic and portal veins. Negative pancreas. No pancreatic mass. No peripancreatic abnormality. Negative adrenal glands. Kidneys are negative. No solid or cystic mass. No hydronephrosis. There is contrast material within small and large bowel. There is mild infiltration of pericecal fat. Appendix is negative. Appendix is filled with contrast. Findings are not consistent with appendicitis there are small pericecal lymph nodes. Largest node measures 12 mm. Mesenteric adenitis tip occurs in children although can be seen in adults as well. Urinary bladder is distended. No bladder calculus. No detectable mass. No free peritoneal fluid. No localized fluid collections. No pneumoperitoneum. No biliary or portal venous gas. No diverticulitis. Lumbar spine is negative. No compression deformities. There is calcified plaque in the abdominal aorta. No abdominal aortic aneurysm. IMPRESSION: 1. Mild pericholecystic inflammatory change. Prominent common bile duct. Recommend gallbladder ultrasound as above 2. Prominent lymph nodes in the right lower quadrant. Mesenteric adenitis suspected Interpreted and Authenticated by: Misha Hines 09/01/16
--- NOTE | 2016-09-01 10:27 | Internal Med Progress Note ---
Medical - PN: Subj Patient information: Note initiated : 08/31/16 at 19:24 am Patient: Panda Meyer 61 y/o M admitted on 08/29/16 for Arrythmia/AFib with RVR. Interval history: 08/29- patient admitted with lower extremity swelling pain and chest palpitation. A. fib RVR started on diltiazem drip. New onset within 48 hours. On full dose anticoagulation. We will attempt cardioversion on flecainide. No S3 Dopplers to rule out DVT. White count 13,000 unclear source. Cultures/ UA. Patient admitted to telemetry. Heart failure improved on diltiazem drip from 140s to mid 80s 08/30-Doppler lower extremity unremarkable for DVT. White count at 14,000. Blood cultures pending. Empiric antibiotics vancomycin and Rocephin. Overnight MAXIMUM TEMPERATURE 102. Patient denies any other symptoms including diarrhea dysuria abdominal pain chest pain nausea. Family at bedside. Status post flecainide but persistent A. fib on telemetry. We'll attempt electrical cardioversion at [place] if patient fails to respond to flecainide. Aggressive source evaluation for sepsis 08/31- patient doing well. Complains of right upper quadrant tenderness. Persistent A. fib however rate controlled on amiodarone load. Echocardiogram reveals EF 60%however pulmonary artery pressures around 50 and graded to MR. Started on Coumadin. In light of asymptomatic A. fib it is unclear whether patient has had paroxysmal or long-standing A. fib and therefore electrical cardioversion should be avoided. We will discontinue amiodarone and see initiate beta neftaly while continuing anticoagulation for CVA prophylaxis. Patient will need cardiology follow-up and evaluation electrical cardioversion after a minimum of [address] abdomen to rule out right upper quadrant pathology - Constitutional Vitals: Vital Signs Temp Pulse Resp BP Pulse Ox 97.8 F 92 H 18 129/86 93 09/01/16 08:00 09/01/16 08:00 09/01/16 08:00 09/01/16 08:00 09/01/16 08:00 Period Temp Pulse Resp BP Sys/Moralez Pulse Ox Last 24 Hr 97.2 F-98.9 F 79-96 18-20 120-142/64-98 91-95 Intake and Output 08/31/16 09/01/16 09/01/16 21:59 05:59 13:59 Intake Total 250 / 250 980 / 980 1020 / 1020 Balance 250 / 250 980 / 980 1020 / 1020 Weight 197 lb Intake & Output: Intake & Output 08/31/16 09/01/16 09/01/16 21:59 05:59 13:59 Intake Total 250 / 250 980 / 980 1020 / 1020 Balance 250 / 250 980 / 980 1020 / 1020 Weight 197 lb Intake: IV 250 / 250 500 / 500 Amiodarone HCl 450 mg In 250 / 250 Dextrose 5% in Water (Non -Pvc) 241 ml @ 0.5 MG/MIN 16.66 mls/hr IV ONCE [facility] Rx#:[id number] Vancomycin 1,250 mg In 500 / 500 Sodium Chloride 0.9% 500 ml @ 250 mls/hr IV Q12 [facility] Rx#:[id number] Oral 480 / 480 1020 / 1020 Other: # Voids 2 # Bowel Movements 1 Medical - PN: Obj Da - Labs CBC & Chem 7: 09/01/16 04:10 09/01/16 04:10 Labs: Abnormal Lab Results 09/01/16 09/01/16 08/31/16 04:10 04:10 04:05 WBC RBC 4.12 L Hgb 13.4 L Hct 39.9 L Plt Count Seg Neutrophils % Lymphocytes % 13 L Monocytes % (Manual) 11 H Myelocytes % 1 H Carbon Dioxide 21 L BUN 7 L Glucose Calcium 8.4 L 8.0 L Phosphorus 2.2 L Total Bilirubin GGT 176 H 132 H NT-Pro-B Natriuret Pep Urine Glucose (UA) Urine Ketones Urine Occult Blood Urine RBC 08/31/16 08/30/16 08/30/16 04:05 09:51 04:15 WBC RBC 3.92 L Hgb 12.8 L Hct 38.0 L Plt Count 134 L Seg Neutrophils % 81 H Lymphocytes % 8 L Monocytes % (Manual) Myelocytes % Carbon Dioxide 21 L BUN Glucose 122 H Calcium 8.4 L Phosphorus 1.2 L Total Bilirubin 1.2 H GGT 113 H NT-Pro-B Natriuret Pep 641.9 H Urine Glucose (UA) 50 A Urine Ketones 20 A Urine Occult Blood 0.03 A Urine RBC 2 H 08/30/16 04:15 WBC 14.0 H RBC 4.17 L Hgb 13.4 L Hct 39.9 L Plt Count Seg Neutrophils % 88 H Lymphocytes % 5 L Monocytes % (Manual) Myelocytes % Carbon Dioxide BUN Glucose Calcium Phosphorus Total Bilirubin GGT NT-Pro-B Natriuret Pep Urine Glucose (UA) Urine Ketones Urine Occult Blood Urine RBC Meds: Medications Acetaminophen (Tylenol) 650 mg PO Q4-6HP PRN PRN Reason: PAIN/FEVER > 101 Last Admin: 08/31/16 23:10 Dose: 650 mg Albuterol/Ipratropium (Duoneb) 3 ml NEB Q4HP PRN PRN Reason: Shortness Of Breath Allopurinol (Zylopriim) 300 mg PO ONCE [facility] Last Admin: 08/31/16 20:23 Dose: Not Given Amlodipine Besylate (Norvasc) 5 mg PO ONCE [facility] Last Admin: 08/31/16 20:22 Dose: Not Given Docusate Sodium (Colace) 100 mg PO BID [facility] Last Admin: 08/31/16 20:22 Dose: 100 mg Enoxaparin Sodium (Lovenox) 80 mg SQ BID [facility] Last Admin: 09/01/16 09:08 Dose: 80 mg Guaifenesin/Codeine Phosphate (Robitussin Ac) 10 ml PO Q4HP PRN PRN Reason: Cough Potassium Chloride 40 meq/ (Dextrose) 520 mls @ 130 mls/hr IV UD PRN PRN Reason: K+ = or < 3.5 Last Infusion: 08/30/16 12:00 Dose: Infused Magnesium Sulfate (Magnesium Sulfate) 2 gm in 50 mls @ 50 mls/hr IV UD PRN PRN Reason: MG = or < 1.7 Ceftriaxone Sodium 2 gm/ (Dextrose) 50 mls @ 100 mls/hr IV Q24H [facility] Last Admin: 09/01/16 09:09 Dose: 100 mls/hr Vancomycin HCl 1,250 mg/ (Sodium Chloride) 500 mls @ 250 mls/hr IV Q12 [facility] Last Admin: 09/01/16 09:10 Dose: 250 mls/hr Iron Carb/Multivit/[place]/Folic Acid (Multivitamin W/Minerals) 1 tab PO DAILY [facility] Last Admin: 09/01/16 09:08 Dose: 1 tab Metoprolol Tartrate (Lopressor) 25 mg PO BID [facility] Last Admin: 09/01/16 09:08 Dose: 25 mg Ondansetron HCl (Zofran) 4 mg IV Q4-6HP PRN PRN Reason: Nausea And Vomiting Pantoprazole Sodium (Protonix) 40 mg PO BIDAC [facility] Last Admin: 09/01/16 09:09 Dose: 40 mg Potassium/Phosphorus/Sodium (Neutra Phos) 2 packet PO BID [facility] Last Admin: 09/01/16 09:09 Dose: 2 packet Senna/Docusate Sodium (Senna Plus Tablet) 1 tab PO HS [facility] Last Admin: 08/31/16 20:25 Dose: Not Given Sodium Chloride (Saline Flush) 10 ml IV Q8 [facility] Last Admin: 09/01/16 05:55 Dose: 10 ml Trazodone HCl (Desyrel) 50 mg PO HSP PRN PRN Reason: Insomnia Last Admin: 08/31/16 20:25 Dose: 50 mg Warfarin Sodium (Coumadin) 5 mg PO DAILY@1400 [facility] Last Admin: 08/31/16 17:22 Dose: 5 mg Medical - PN: A/P - Time Spent With Patient Total time spent is greater than 50% in coordination of care (as documented) at patient's floor/unit and/or counseling patient: 25 - 35 minutes (1) Atrial fibrillation with RVR Status: Acute Assessment and plan: * Atrial fibrillationwith RVR-discontinue amiodarone. continue anticoagulation for minimum of 4 weeks prior to cardioversion. Start a low-dose beta neftaly. Echocardiogram grade 2 MR. pulmonary artery pressure 50. Normal EF * Sepsis- await abdominal CT for right upper quadrant pain. White count at 10, 000. Afebrile * Hypertension-meds on hold. ystolics around 120s * history of gout continue allopurinol * DNR Plan * CT abdomen * low-dose beta neftaly * anticoagulation * Delay cardioversion for 4 weeks due to risk of stroke Current Visit: Yes Medical - PN: Qual - VTE Deep Vein Thrombosis/Pulmonary Embolism Present on Admission: No
--- NOTE | 2016-09-01 10:32 | Internal Med Progress Note ---
Medical - PN: Subj Patient information: Note initiated : 09/01/16 at 10:30 am Service Date, if different from initiated Date: [] Patient: Panda Meyer 61 y/o M admitted on 08/29/16 for Arrythmia/AFib with RVR. Chief Complaint: [] Interval history: 08/29- patient admitted with lower extremity swelling pain and chest palpitation. A. fib RVR started on diltiazem drip. New onset within 48 hours. On full dose anticoagulation. We will attempt cardioversion on flecainide. No S3 Dopplers to rule out DVT. White count 13,000 unclear source. Cultures/ UA. Patient admitted to telemetry. Heart failure improved on diltiazem drip from 140s to mid 80s 08/30-Doppler lower extremity unremarkable for DVT. White count at 14,000. Blood cultures pending. Empiric antibiotics vancomycin and Rocephin. Overnight MAXIMUM TEMPERATURE 102. Patient denies any other symptoms including diarrhea dysuria abdominal pain chest pain nausea. Family at bedside. Status post flecainide but persistent A. fib on telemetry. We'll attempt electrical cardioversion at [place] if patient fails to respond to flecainide. Aggressive source evaluation for sepsis 08/31- patient doing well. Complains of right upper quadrant tenderness. Persistent A. fib however rate controlled on amiodarone load. Echocardiogram reveals EF 60%however pulmonary artery pressures around 50 and graded to MR. Started on Coumadin. In light of asymptomatic A. fib it is unclear whether patient has had paroxysmal or long-standing A. fib and therefore electrical cardioversion should be avoided. We will discontinue amiodarone and see initiate beta neftaly while continuing anticoagulation for CVA prophylaxis. Patient will need cardiology follow-up and evaluation electrical cardioversion after a minimum of [address] abdomen to rule out right upper quadrant pathology 09/01- cholecystitis on CT abdomen. Await right upper quadrant ultrasound. Surgery consulted. Patient asymptomatic. No overnight fever chills nausea vomiting. white count down to 8.8. normal LFTs. - Constitutional Vitals: Vital Signs Temp Pulse Resp BP Pulse Ox 97.8 F 92 H 18 129/86 93 09/01/16 08:00 09/01/16 08:00 09/01/16 08:00 09/01/16 08:00 09/01/16 08:00 Period Temp Pulse Resp BP Sys/Moralez Pulse Ox Last 24 Hr 97.2 F-98.9 F 79-96 18-20 120-142/64-98 91-95 Intake and Output 08/31/16 09/01/16 09/01/16 21:59 05:59 13:59 Intake Total 250 / 250 980 / 980 1020 / 1020 Balance 250 / 250 980 / 980 1020 / 1020 Weight 197 lb Intake & Output: Intake & Output 08/31/16 09/01/16 09/01/16 21:59 05:59 13:59 Intake Total 250 / 250 980 / 980 1020 / 1020 Balance 250 / 250 980 / 980 1020 / 1020 Weight 197 lb Intake: IV 250 / 250 500 / 500 Amiodarone HCl 450 mg In 250 / 250 Dextrose 5% in Water (Non -Pvc) 241 ml @ 0.5 MG/MIN 16.66 mls/hr IV ONCE [facility] Rx#:[id number] Vancomycin 1,250 mg In 500 / 500 Sodium Chloride 0.9% 500 ml @ 250 mls/hr IV Q12 [facility] Rx#:[id number] Oral 480 / 480 1020 / 1020 Other: # Voids 2 # Bowel Movements 1 General appearance: cooperative, no acute distress Exam: Alert oriented nonlabored breathing Right upper quadrant abdominal pain improving no anxiety Persistent A. fib rate controlled Medical - PN: Obj Da - Labs CBC & Chem 7: 09/01/16 04:10 09/01/16 04:10 Labs: Abnormal Lab Results 09/01/16 09/01/16 08/31/16 04:10 04:10 04:05 WBC RBC 4.12 L Hgb 13.4 L Hct 39.9 L Plt Count Seg Neutrophils % Lymphocytes % 13 L Monocytes % (Manual) 11 H Myelocytes % 1 H Carbon Dioxide 21 L BUN 7 L Glucose Calcium 8.4 L 8.0 L Phosphorus 2.2 L Total Bilirubin GGT 176 H 132 H NT-Pro-B Natriuret Pep Urine Glucose (UA) Urine Ketones Urine Occult Blood Urine RBC 08/31/16 08/30/16 08/30/16 04:05 09:51 04:15 WBC RBC 3.92 L Hgb 12.8 L Hct 38.0 L Plt Count 134 L Seg Neutrophils % 81 H Lymphocytes % 8 L Monocytes % (Manual) Myelocytes % Carbon Dioxide 21 L BUN Glucose 122 H Calcium 8.4 L Phosphorus 1.2 L Total Bilirubin 1.2 H GGT 113 H NT-Pro-B Natriuret Pep 641.9 H Urine Glucose (UA) 50 A Urine Ketones 20 A Urine Occult Blood 0.03 A Urine RBC 2 H 08/30/16 04:15 WBC 14.0 H RBC 4.17 L Hgb 13.4 L Hct 39.9 L Plt Count Seg Neutrophils % 88 H Lymphocytes % 5 L Monocytes % (Manual) Myelocytes % Carbon Dioxide BUN Glucose Calcium Phosphorus Total Bilirubin GGT NT-Pro-B Natriuret Pep Urine Glucose (UA) Urine Ketones Urine Occult Blood Urine RBC Meds: Medications Acetaminophen (Tylenol) 650 mg PO Q4-6HP PRN PRN Reason: PAIN/FEVER > 101 Last Admin: 08/31/16 23:10 Dose: 650 mg Albuterol/Ipratropium (Duoneb) 3 ml NEB Q4HP PRN PRN Reason: Shortness Of Breath Allopurinol (Zylopriim) 300 mg PO ONCE [facility] Last Admin: 08/31/16 20:23 Dose: Not Given Amlodipine Besylate (Norvasc) 5 mg PO ONCE [facility] Last Admin: 08/31/16 20:22 Dose: Not Given Docusate Sodium (Colace) 100 mg PO BID [facility] Last Admin: 08/31/16 20:22 Dose: 100 mg Enoxaparin Sodium (Lovenox) 80 mg SQ BID [facility] Last Admin: 09/01/16 09:08 Dose: 80 mg Guaifenesin/Codeine Phosphate (Robitussin Ac) 10 ml PO Q4HP PRN PRN Reason: Cough Potassium Chloride 40 meq/ (Dextrose) 520 mls @ 130 mls/hr IV UD PRN PRN Reason: K+ = or < 3.5 Last Infusion: 08/30/16 12:00 Dose: Infused Magnesium Sulfate (Magnesium Sulfate) 2 gm in 50 mls @ 50 mls/hr IV UD PRN PRN Reason: MG = or < 1.7 Ceftriaxone Sodium 2 gm/ (Dextrose) 50 mls @ 100 mls/hr IV Q24H [facility] Last Admin: 09/01/16 09:09 Dose: 100 mls/hr Vancomycin HCl 1,250 mg/ (Sodium Chloride) 500 mls @ 250 mls/hr IV Q12 [facility] Last Admin: 09/01/16 09:10 Dose: 250 mls/hr Iron Carb/Multivit/George/Folic Acid (Multivitamin W/Minerals) 1 tab PO DAILY [facility] Last Admin: 09/01/16 09:08 Dose: 1 tab Metoprolol Tartrate (Lopressor) 25 mg PO BID [facility] Last Admin: 09/01/16 09:08 Dose: 25 mg Ondansetron HCl (Zofran) 4 mg IV Q4-6HP PRN PRN Reason: Nausea And Vomiting Pantoprazole Sodium (Protonix) 40 mg PO BIDAC [facility] Last Admin: 09/01/16 09:09 Dose: 40 mg Potassium/Phosphorus/Sodium (Neutra Phos) 2 packet PO BID [facility] Last Admin: 09/01/16 09:09 Dose: 2 packet Senna/Docusate Sodium (Senna Plus Tablet) 1 tab PO HS [facility] Last Admin: 08/31/16 20:25 Dose: Not Given Sodium Chloride (Saline Flush) 10 ml IV Q8 [facility] Last Admin: 09/01/16 05:55 Dose: 10 ml Trazodone HCl (Desyrel) 50 mg PO HSP PRN PRN Reason: Insomnia Last Admin: 08/31/16 20:25 Dose: 50 mg Warfarin Sodium (Coumadin) 5 mg PO DAILY@1400 [facility] Last Admin: 08/31/16 17:22 Dose: 5 mg Medical - PN: A/P - Time Spent With Patient Total time spent is greater than 50% in coordination of care (as documented) at patient's floor/unit and/or counseling patient: 15 - 24 minutes (1) Atrial fibrillation with RVR Status: Acute Assessment and plan: * acute cholecystitis-on CT abdomen. right upper quadrant ultrasound pending. surgery consult * Atrial fibrillation with RVR-now rate controlled. Continue low-dose beta neftaly. Echocardiogram grade 2 MR. pulmonary artery pressure 50. Normal EF. target minimum 4 weeks anticoagulation prior to cardioversion * Sepsis-clinical resolution noted. White count 8000. likely secondary to acute cholecystitis * Hypertension-continue beta neftaly. Hold NATALY inhibitor. Systolics at goal * history of gout continue allopurinol * DNR Plan * ultrasound abdomen * continue low-dose beta neftaly * Continue anticoagulation on Coumadin/Lovenox. * Delay cardioversion for 4 weeks due to risk of stroke * outpatient cardiology follow-up Current Visit: Yes Medical - PN: Qual - VTE Deep Vein Thrombosis/Pulmonary Embolism Present on Admission: No
--- NOTE | 2016-09-01 13:21 | Ultrasound Report ---
CLINICAL INFORMATION: Abdominal pain. Right upper quadrant abdominal pain. TECHNIQUE: Grayscale and color flow spectral imaging COMPARISON: CT scan dated 09/01/2016 FINDINGS: Gallbladder is negative. No cholelithiasis. No gallbladder wall thickening. No pericholecystic fluid. No intrahepatic bile duct dilatation. The common bile duct, however, is dilated to 7.2 mm. No detectable choledocholithiasis. Etiology of this bile duct dilatation is not certain. No pancreatic head mass on previous CT scan. Liver is mildly heterogeneous and echogenic. Fatty infiltration is possible. No focal mass. Liver contour is smooth. No evidence for cirrhosis. IMPRESSION: 1. Negative gallbladder 2. Dilated common bile duct. Etiology not certain Interpreted and Authenticated by: Misha Hines 09/01/16
--- NOTE | 2016-09-01 15:53 | Discharge Summary ---
Medical - DS: Prov Patient information: Note initiated : 09/01/16 at 3:49 pm Service Date, if different from initiated Date: [] Patient: Panda Meyer 61 y/o M admitted on 08/29/16 for Arrythmia/AFib with RVR. Chief Complaint: [] Date of admission: 08/29/16 18:55 Discharge date: 09/01/16 Primary care physician: [f_Reg Prim Care Provider] Medical - DS: Meds - Discharge Medications Prescriptions: Ciprofloxacin HCl [Cipro] 500 mg PO BID #20 tablet Enoxaparin [Lovenox] 80 mg SQ BID #14 syringe Losartan [Cozaar] 50 mg PO DAILY #30 tablet Metoprolol Tartrate [Lopressor] 25 mg PO BID #60 tablet Warfarin [Coumadin] 5 mg PO DAILY@1400 #30 tablet metroNIDAZOLE [Flagyl] 500 mg PO TID #30 tablet traZODone HCL [Desyrel] 50 mg PO HSP PRN #20 tablet PRN Reason: Insomnia Active and Home Medications: Home Medications Allopurinol [Zylopriim] 300 mg PO ONCE 08/29/16 [History Confirmed 08/29/16 Last Taken 08/29/16 08:00] Omeprazole [Prilosec] 20 mg PO DAILY 08/29/16 [History Confirmed 08/29/16 Last Taken 08/29/16 08:00] Sildenafil Citrate [Viagra] 100 mg PO PRN PRN 08/29/16 [History Confirmed Last Taken 06/10/16] Testosterone Cypionate [Depo-Testosterone] 200 mg IM ONCE 08/29/16 [History Confirmed 08/29/16 Last Taken 08/27/16] amLODIPine [Norvasc] 5 mg PO ONCE 08/29/16 [History Confirmed 08/29/16 Last Taken 08/29/16 08:00] Ciprofloxacin HCl [Cipro] 500 mg PO BID #20 tablet 09/01/16 [Rx Last Taken Unknown] Enoxaparin [Lovenox] 80 mg SQ BID #14 syringe 09/01/16 [Rx Last Taken Unknown] Losartan [Cozaar] 50 mg PO DAILY #30 tablet 09/01/16 [Rx Last Taken Unknown] Metoprolol Tartrate [Lopressor] 25 mg PO BID #60 tablet 09/01/16 [Rx Last Taken Unknown] Warfarin [Coumadin] 5 mg PO DAILY@1400 #30 tablet 09/01/16 [Rx Last Taken Unknown] metroNIDAZOLE [Flagyl] 500 mg PO TID #30 tablet 09/01/16 [Rx Last Taken Unknown] traZODone HCL [Desyrel] 50 mg PO HSP PRN #20 tablet 09/01/16 [Rx Last Taken Unknown] Medical - DS: Hosp Hospital course: DISCHARGE DIAGNOSIS * cecal inflammation/Mesentric adenitis-unclear etiology. on Cipro Flagyl. Clinically improved. Negative right upper quadrant ultrasound for cholecystitis. Surgery recommends outpatient colonoscopy. patient feels at baseline and requesting discharge. * Atrial fibrillation with RVR-now rate controlled. Continue low-dose beta neftaly. Echocardiogram grade 2 MR. pulmonary artery pressure 50. Normal EF. target minimum 4 weeks anticoagulation prior to cardioversion. cheduled outpatient follow-up with cardiology * Sepsis-clinical resolution noted. White count 8000. likely secondary to cecal inflammation/mesenteric adenitis * Hypertension-continue beta neftaly. restart ARB at half dose. Continue amlodipine. DC thiazide * history of gout continue allopurinol Brief hospital course Mr. Meyer is a 61 year old male 08/29- patient admitted with lower extremity swelling pain and chest palpitation. A. fib RVR started on diltiazem drip. New onset within 48 hours. On full dose anticoagulation. We will attempt cardioversion on flecainide. No S3 Dopplers to rule out DVT. White count 13,000 unclear source. Cultures/ UA. Patient admitted to telemetry. Heart failure improved on diltiazem drip from 140s to mid 80s 08/30-Doppler lower extremity unremarkable for DVT. White count at 14,000. Blood cultures pending. Empiric antibiotics vancomycin and Rocephin. Overnight MAXIMUM TEMPERATURE 102. Patient denies any other symptoms including diarrhea dysuria abdominal pain chest pain nausea. Family at bedside. Status post flecainide but persistent A. fib on telemetry. We'll attempt electrical cardioversion at [place] if patient fails to respond to flecainide. Aggressive source evaluation for sepsis 08/31- patient doing well. Complains of right upper quadrant tenderness. Persistent A. fib however rate controlled on amiodarone load. Echocardiogram reveals EF 60%however pulmonary artery pressures around 50 and graded to MR. Started on Coumadin. In light of asymptomatic A. fib it is unclear whether patient has had paroxysmal or long-standing A. fib and therefore electrical cardioversion should be avoided. We will discontinue amiodarone and see initiate beta neftaly while continuing anticoagulation for CVA prophylaxis. Patient will need cardiology follow-up and evaluation electrical cardioversion after a minimum of [address] abdomen to rule out right upper quadrant pathology 09/01- cholecystitis on CT abdomen. Await right upper quadrant ultrasound. Surgery consulted. Patient asymptomatic. No overnight fever chills nausea vomiting. white count down to 8.8. normal LFTs. reviewed ultrasound. No evidence of any cholecystitis or choledocholithiasis. Discussed with surgery. no indication for surgery. There is inflammation around the cecum and surgery recommended outpatient colonoscopy. Patient continues to be in A. fib rate controlled. Detailed discharge instructions as below. Patient will continue anticoagulation along with Cipro Flagyl for cecal inflammation/colitis. He will follow-up with cardiology in 4 weeks for cardioversion /A. fib evaluation and GI in 3 weeks for colonoscopy. primary discharge patient is stable. No active symptoms. Abdominal pain much improved. 2 episode of formed bowel movements since morning. Afebrile. Requesting discharge. Discussed discharge plan with patient and daughter. detailed discharge instructions as below Discharge diagnosis: . - Time Spent with Patient Total time spent providing and/or coordinating discharge services: Greater than 30 minutes Medical - DS: Exam - Constitutional Vitals: Vital Signs Temp Pulse Resp BP Pulse Ox 09/01/16 12:00 98.4 F 80 20 142/88 93 09/01/16 08:00 97.8 F 92 H 18 129/86 93 09/01/16 04:00 97.8 F 83 18 127/81 93 08/31/16 23:08 98.7 F 96 H 20 120/64 91 08/31/16 18:37 98.9 F 20 138/79 91 08/31/16 16:00 98.9 F 20 142/98 95 Intake and Output 09/01/16 09/01/16 09/01/16 05:59 13:59 21:59 Intake Total 980 / 980 1070 / 1070 Balance 980 / 980 1070 / 1070 Intake: IV 500 / 500 50 / 50 Vancomycin 1,250 mg In 500 / 500 Sodium Chloride 0.9% 500 ml @ 250 mls/hr IV Q12 [facility] Rx#:[id number] Rocephin 2 gm In Dextrose 50 / 50 5% in Water 50 ml @ 100 mls/hr IV Q24[facility] Rx#: [id number] Oral 480 / 480 1020 / 1020 Other: # Voids 2 # Bowel Movements 1 Medical - DS: Data Labs on day of discharge: Labs from last 24 hours 09/01/16 09/01/16 09/01/16 04:10 04:10 04:10 WBC 8.8 RBC 4.12 L Hgb 13.4 L Hct 39.9 L MCV 96.8 MCH 32.4 MCHC 33.5 RDW 13.8 Plt Count 180 MPV 7.9 Total Counted 100 Seg Neutrophils % 67 Band Neutrophils % 2 Lymphocytes % 13 L Monocytes % (Manual) 11 H Eosinophils % (Manual) 4 Basophils % (Manual) 1 Myelocytes % 1 H Reactive Lymphocytes 1 Platelet Estimate Normal RBC Morphology Normal PT 14.1 INR 1.1 Sodium 141 Potassium 3.8 Chloride 104 Carbon Dioxide 22 Anion Gap 15.0 BUN 7 L Creatinine 0.9 GFR Calculation 91 Glucose 91 Uric Acid 4.0 Calcium 8.4 L Phosphorus 3.3 Magnesium 2.1 Total Bilirubin 0.3 Direct Bilirubin < 0.2 GGT 176 H AST 22 ALT 19 Alkaline Phosphatase 81 Lactate Dehydrogenase 187 Total Protein 6.2 Albumin 3.3 Globulin 2.9 Albumin/Globulin Ratio 1.1 Triglycerides 122 Amylase Lipase 08/31/16 16:46 WBC RBC Hgb Hct MCV MCH MCHC RDW Plt Count MPV Total Counted Seg Neutrophils % Band Neutrophils % Lymphocytes % Monocytes % (Manual) Eosinophils % (Manual) Basophils % (Manual) Myelocytes % Reactive Lymphocytes Platelet Estimate RBC Morphology PT INR Sodium Potassium Chloride Carbon Dioxide Anion Gap BUN Creatinine GFR Calculation Glucose Uric Acid Calcium Phosphorus Magnesium Total Bilirubin Direct Bilirubin GGT AST ALT Alkaline Phosphatase Lactate Dehydrogenase Total Protein Albumin Globulin Albumin/Globulin Ratio Triglycerides Amylase 40 Lipase 41 Preliminary micro results at discharge 08/30/16 05:45 Blood Culture - Preliminary Blood 08/30/16 05:40 Blood Culture - Preliminary Blood Medical - DS: A/P - Patient/Caregiver Discharge Instructions Activity: increase activity as tolerated, resume usual activities as tolerated Diet: Low Sodium (2gm) Additional Instructions: Follow-up PCP in 5 days F/u cardiology in 4 weeks for afib evaluation/cardioversion- PCP to coordinate F/u with GI for outpatient colonoscopy in 2-3 weeks Coumadin dosing based on INR per to be managed by primary care physician I recommend primary care physician to check INR, CBC BMP as a posthospital follow-up Antibiotics for additional 10 days continue Lovenox until INR therapeutic discontinue hydrochlorothiazide continue beta neftaly for rate control All meals on chair sitting upright at 90 degrees to prevent aspiration Return to ER if worsening fever chills shortness of breath, diarrhea, bleeding Review risk and side effect profile of medications including antibiotics. Side effect may include mild to severe reaction including rash, diarrhea, cdiff and even which can be prevented by close follow-up with PCP and monitoring for side effects Refrain from smoking and alcohol due to high risk disulfiram reaction with Flagyl Continue diet and activity as advised Discussed importance of medication adherence Please review medication list with patient prior to discharge Please schedule follow-up with PCP/Providers prior to discharge and provide printouts Portions of this chart may have been created with [employer] voice recognition software. Occasional wrong-word or ?sound-like? substitutions may have occurred due to the inherent limitations of voice recognition software. Please read the chart carefully and recognize, using context, where the substitutions have occurred. CC- PCP Prescriptions: Ciprofloxacin HCl [Cipro] 500 mg PO BID #20 tablet Enoxaparin [Lovenox] 80 mg SQ BID #14 syringe Losartan [Cozaar] 50 mg PO DAILY #30 tablet Metoprolol Tartrate [Lopressor] 25 mg PO BID #60 tablet Warfarin [Coumadin] 5 mg PO DAILY@1400 #30 tablet metroNIDAZOLE [Flagyl] 500 mg PO TID #30 tablet traZODone HCL [Desyrel] 50 mg PO HSP PRN #20 tablet PRN Reason: Insomnia - Problem Maintenance (1) Atrial fibrillation with RVR Status: Acute - Follow up Plan Follow up with: Justo Conner DO [Primary Care Provider] - Disposition: Home, Self-Care Prognosis: Fair Rehab Potential: Fair I certify that the patient requires SNF services: No Overall status at discharge: patient is progressing back to baseline Medical - DS: Qual - VTE Deep Vein Thrombosis/Pulmonary Embolism Present on Admission: No
[2016-09-01] MEDS: WARFARIN 5 MG TABLET PO SCH (16:28)
--- NOTE | 2016-09-01 16:31 | Consultation ---
DATE OF CONSULTATION: 09/01/2016 CHIEF COMPLAINT: The patient is seen in consultation at the request of Dr. Sandoval for right-sided abdominal pain. HISTORY OF PRESENT ILLNESS: The patient is a 61-year-old man who was admitted to [facility] three days ago for atrial fibrillation with rapid ventricular response. During this hospitalization, the patient has developed abdominal pain which he reported to nursing staff and subsequently to Dr. Sandoval. This has been evaluated with CT scan and ultrasound of the right upper quadrant. In talking with the patient, he reports that he had developed pain two days ago on the right side of his abdomen. This pain had started off as a pain in the right lower abdomen which he describes as an ache. It increased in severity over the subsequent day and was present also today up until when he passed bowel movements. Since then, his pain has improved some and is not as severe as it was previously. He has had no associated nausea or vomiting. He has been eating throughout his admission and has not had any exacerbation of his pain related to his eating. His last meal was lunch today. He denies any nausea or vomiting. When questioned where exactly is this pain, the patient reports that it is in the lower right abdomen, and he points to the right lower quadrant. In talking with the patient further as to whether he has ever had any discomfort in his abdomen before, he says he has had some problems with his stool with changes in his stool habits occurring two months ago. He developed problems with diarrhea which he describes as watery diarrhea whenever he passes stool, and this has been fairly persistent beginning two months ago. He denies any ed blood in his stool. When questioned when was his last colonoscopy, he reports he has never had one. PAST MEDICAL HISTORY: Hypertension, gout, gastroesophageal reflux disease. HOME MEDICATIONS: 1. Losartan. 2. Diltiazem. 3. Omeprazole. 4. Allopurinol. 5. Testosterone. 6. Amlodipine. 7. He has also been started on metoprolol and is on Lovenox for anticoagulation here in the hospital. ALLERGIES: No known drug allergies. PHYSICAL EXAMINATION: VITAL SIGNS: Temperature 98.4, pulse 80, respirations 20, blood pressure 142/88, O2 saturations 93% on room air. GENERAL: The patient is a well-developed, well-nourished elderly man who appears his stated age in no acute distress. HEENT: Head is normocephalic. Sclerae are white. Mucous membranes are moist. He is missing some of his teeth. CHEST: Breath sounds are clear bilaterally. No rales or wheezes are heard. CARDIOVASCULAR: Reveals a regular rate, but an irregularly irregular rhythm. ABDOMEN: Obese, soft. He reports mild tenderness on deep palpation in the right lower quadrant. No guarding noted. No rebound tenderness noted. No masses or hernias palpated, although this can be difficult to fully appreciate due to body habitus. EXTREMITIES: Warm with trace edema of the feet bilaterally. DP pulses are easily palpable in the lower extremities bilaterally. LABS AND STUDIES: On admission, the patient's white blood cell count was 13.9, but today is 8.8. Hemoglobin is 13.4, hematocrit 39.9 and platelets are 180. Serum chemistry shows sodium 141, potassium 3.8, CO2 22, chloride 104, BUN 7, creatinine 0.9, glucose 91, calcium 8.4, phosphorus 3.3, magnesium 2.1. Total bilirubin is normal at 0.3. On admission it was mildly elevated at 1.2, but direct bilirubin was normal at 0.3, and today is less than 0.2. GGT is 176. AST is 22, ALT 19, alkaline phosphatase 81. BNP on admission is 641.9. Albumin today is 3.3, globulin 2.9, triglycerides 122. Additional labs include amylase and lipase done yesterday at [address] scan of the abdomen and pelvis was performed today for evaluation of his abdominal pain. I have reviewed the CT images with the radiologist. This was followed up with an ultrasound which I have also reviewed with the radiologist. There was a question of a pericholecystic, mild inflammatory change seen on CT scan but no evidence of gallstones. Ultrasound shows no evidence of gallstones or findings of cholecystitis. With further review of the patient's CT scan, there is an area of the cecum that looks a little thick, which is either due to incomplete distention or possibly some mild inflammatory change. Some pericecal lymphadenopathy is also noted. No sign of diverticulitis or ed sign of colitis noted. ASSESSMENT AND PLAN: Right lower quadrant abdominal pain, etiology uncertain. Clinical findings and history do not seem consistent with biliary pain. Given the changes in his bowel movements that have occurred for the past two months and findings on CT scan, I would recommend this be followed up by GI medicine which can be done at an outpatient setting. Colonoscopy is likely to be recommended in light of his age, as well as changes in his bowel habits. While here in the hospital, we will submit for C. diff testing of his stool given the description of diarrhea stools that he has been having. I have also discussed the case with Dr. Sandoval, the hospitalist, who requested this consult and after stool is sent for C. diff toxin, it would be reasonable to start the patient on Flagyl. RC:adriana Job ID: [id number] Doc ID: [id number] Sheri Gaspar MD
== END 2016-09-01 17:37 | disposition home or self-care (01) | DRG 308 ==
LOC: ED 16:41 → ICU 18:55
PROVIDERS: ADMIT Internal Medicine; ATTEND Internal Medicine

== ENCOUNTER 2016-12-14 18:27 | Observation (INO) ==
[2016-12-14] MEDS ORDERED: 0.9 % SODIUM CHLORIDE 2,000 ML IV ONE (19:04)
--- NOTE | 2016-12-14 19:40 | XRay Report ---
CLINICAL INFORMATION: Abdominal pain. Vomiting. Bloating. TECHNIQUE: Supine and upright abdomen COMPARISON: Previous CT scan dated 09/01/2016 FINDINGS: Gas and fecal material within the colon. No dilated gas-filled small bowel. There are scattered colonic air-fluid levels which are nonspecific. No pneumoperitoneum. No pneumatosis. No biliary or portal venous gas. No pathologic calcifications. Previous CT scan demonstrated prominent lymph nodes in the right lower quadrant. There is mild pericolonic inflammatory change and prominent cecal wall. Repeat abdominal and pelvic CT scan recommended to evaluate for progression or resolution of right lower quadrant adenopathy and mild inflammatory change. IMPRESSION: 1. Nonspecific bowel gas pattern. No mechanical small bowel obstruction. 2. Recommend follow-up CT scan to evaluate for resolution or progression of right lower quadrant adenopathy and findings consistent with cecal inflammation. Interpreted and Authenticated by: Misha Hines 12/14/16
--- NOTE | 2016-12-14 21:06 | Emergency Department Note ---
Nausea/Vomiting/Diarrhea HPI - General Chief complaint: Nausea/Vomiting/Diarrhea Stated complaint: bloating, nausea, vomitting Time Seen by Provider: 12/14/16 19:04 Source: patient Mode of arrival: ambulatory Limitations: no limitations - History of Present Illness HPI Narrative: 61-year-old male comes in at the request of Dr. Conner. He was drinking some over the weekend and then went to a green party on 13 December. He has not drank for over 24 hours but he developed some bloating yesterday, and then today had nausea and vomiting 7 episodes. Denies fever chills diarrhea dysuria chest pain etc. he called Dr. Conner who ordered some laboratory-after reviewing the laboratories advised patient to come in secondary to kidney failure and elevated lipase. Is also concerned as the patient has a history of abdominal lymphadenitis on CT scan 3 months ago-he wanted us to repeat the scan - Related Data Home Medications Medication Instructions Recorded Confirmed Allopurinol [Zylopriim] 300 mg PO ONCE 08/29/16 12/14/16 Omeprazole [Prilosec] 20 mg PO DAILY 08/29/16 12/14/16 Atorvastatin Calcium 20 mg PO ONCE 12/14/16 12/14/16 Losartan [Cozaar] 100 mg PO DAILY 12/14/16 12/14/16 Previous Rx's Medication Instructions Recorded Metoprolol Tartrate [Lopressor] 25 mg PO BID #60 tablet 09/01/16 Warfarin [Coumadin] 5 mg PO DAILY@1400 #30 tablet 09/01/16 Allergies Allergy/AdvReac Type Severity Reaction Status Date / Time No Known Drug Allergies Allergy Verified 08/29/16 16:46 Review of Systems All systems ED: reviewed and negative except as stated. Past Medical History - Past Medical History Attestation: Yes: The following information was validated with the patient. Medical history: Reports: atrial fibrillation, GERD, hypertension, other ( Diverticulosis, gout) Surgical history ED: Reports: other (left thumb) - Social History smoking status: Never smoker Alcohol use: Reports: Occasionally, Recent Drug use: Reports: none Physical Exam No acute distress resting comfortably able to answer questions appropriately. Normocephalic atraumatic. Conjunctive are clear sclerae nonicteric. No nasal discharge or congestion. Oropharynx is pink and moist. Posterior pharynx is clear. Missing 2 teeth. Neck is supple without lymphadenopathy or thyromegaly. Heart is irregularly irregular but no murmurs appreciated. Lungs are clear to auscultation bilaterally without wheezes rales rhonchi or respiratory distress. Abdomen soft mildly tender diffusely but nondistended no peritoneal signs or guarding. Normoactive bowel sounds. +2 radial pulse. No pedal edema. Alert and oriented. No dysarthria ataxia or tremor. - General Limitations: no limitations Course Vital Signs Temperature 97.3 F 12/14/16 18:29 Pulse Rate 86 12/14/16 18:29 Respiratory Rate 18 12/14/16 18:29 Blood Pressure 108/65 12/14/16 18:29 Pulse Oximetry (%) 94 12/14/16 18:29 Temperature 97.3 F 12/14/16 18:29 Pulse Rate 87 12/14/16 21:31 Respiratory Rate 18 12/14/16 18:29 Blood Pressure 122/83 12/14/16 21:31 Pulse Oximetry (%) 97 12/14/16 21:31 Nausea/Vomiting/Diarrhea - Lab Data Lab results reviewed: Yes I reviewed the patient's lab results. Result diagrams: 12/14/16 20:30 12/14/16 20:30 Lab Results 12/14/16 12/14/16 Range/Units 20:30 20:30 WBC 12.2 H (4.5-11.0) K/mcL RBC 4.57 (4.50-5.90) M/mcL Hgb 15.3 (13.5-16.5) g/dL Hct 45.0 (41.0-55.0) % POC Hct 46.0 (41.0-55.0) % MCV 98.5 (80.0-100.0) fL MCH 33.4 (26.0-34.0) pg MCHC 33.9 (31.0-36.0) g/dL RDW 13.5 (11.5-14.5) % Plt Count 183 (140-440) K/mcL MPV 7.9 (7.4-10.4) fL Gran % 82.3 H (38.0-78.0) % Lymph % (Auto) 8.5 L (15.5-49.0) % [place] % (Auto) 8.7 (1.0-12.0) % Eos % (Auto) 0.4 (0.0-7.0) % Baso % (Auto) 0.1 (0.0-2.0) % Gran # 10.1 H (1.8-8.0) K/mcL Lymph # (Auto) 1.0 L (1.5-4.8) K/mcL [place] # (Auto) 1.1 H (0.1-0.9) K/mcL Eos # (Auto) 0.1 (0.0-0.7) K/mcL Baso # (Auto) 0 (0.0-0.3) K/mcL POC Sodium 139 (133-145) mmol/L POC Potassium 4.1 (3.3-5.1) mmol/L POC Chloride 101 (96-108) mmol/L POC Total CO2 26 (22-30) mmol/L POC BUN 25 H (8-23) mg/dl POC Creatinine 1.8 H (0.7-1.2) mg/dl POC Glucose 84 (70-105) mg/dL POC WB Ioniz Calcium 1.15 L (1.16-1.32) mmol/L Previous laboratory from Dr. Conner's office shows white blood cells 15.8 hemoglobin 17.9 platelets 228 chemistry panel sodium 143 potassium 4.4 chloride 98 CO2 24 BUN 23 creatinine 1.8 which is elevated from his baseline level on comparison to previous glucose is 143 calcium is 10.5 AST is 41 lipase 73 the rest of the chemistries are normal urinalysis showed specific gravity 1.029 some concentration with that. - Radiology Data Radiology results reviewed: Yes I reviewed the patient's radiology results. X-ray 2 views of the abdomen showed no acute findings-gas pattern is normal Disposition Clinical Impression: Gastroenteritis, Acute kidney injury Summary: Reviewed patient's initial lab after talking with Dr. Conner, unable to do CT scan secondary to elevated creatinine. Start IV fluids and Zofran X-ray series of the abdomen is read as essentially normal-however CT is recommended when able secondary to follow-up as noted above. After getting a liter of IV fluids Chem-8 is rechecked but creatinine is still elevated. IV fluids are continued Suspect gastroenteritis versus food poisoning versus other belly pathology causing nausea and vomiting and secondary dehydration with acute kidney injury. Elevated lipase likely secondary to recent increase in drinking over the weekend, or from nausea and vomiting. Discussed case with Dr. Gipson the hospitalist who agreed to accept the patient for further care and evaluation of his kidney injury and continued IV fluids in the hospital. Disposition: Xfer As Outpt/Obs ([facility]) Condition: Fair
[2016-12-14] MEDS ORDERED: ONDANSETRON 4 MG/2 ML VIAL IV PRN (21:56)
[2016-12-14] MEDS ORDERED: ZOLPIDEM 5 MG TABLET PO PRN (21:56)
[2016-12-14] MEDS ORDERED: ACETAMINOPHEN 325 MG TABLET PO PRN (21:56)
[2016-12-14] MEDS ORDERED: oxyCODONE HCL 5 MG TABLET PO PRN (21:56)
[2016-12-14] MEDS ORDERED: PROMETHAZINE 25 MG/ML VIAL IV PRN (21:56)
[2016-12-14] MEDS ORDERED: NALOXONE HCL 0.4 MG/ML VIAL IV PRN (21:56)
[2016-12-14] MEDS ORDERED: MAGNESIUM HYDROXIDE 30 ML ORAL.SUSP PO PRN (21:56)
[2016-12-14] MEDS: 0.9 % SODIUM CHLORIDE 1,000 ML IV SCH (22:14)
[2016-12-14] MEDS: 0.9 % SODIUM CHLORIDE 10 ML SYRINGE IV SCH (22:14)
[2016-12-14] MEDS ORDERED: ALLOPURINOL 300 MG TABLET PO SCH (22:30)
[2016-12-14] MEDS ORDERED: ATORVASTATIN 20 MG TABLET PO SCH (22:30)
--- NOTE | 2016-12-14 22:30 | Internal Med History&Physical ---
Medical - H&P: HPI Patient information: Note initiated : 12/14/16 at 10:23 pm Service Date, if different from initiated Date: [] Patient: Panda Meyer 61 y/o M admitted on 12/14/16 for bloating, nausea, vomitting. Chief Complaint: [] History of present illness: Mr. Meyer is a 61 year old M prsents to the ER with nausea and vomiting x 1 day He note that he may have eaten a bit too much yesterday on the 13 of december, started off with atrifical crab, garlic crackers, peakuts, jelly beans, carrots , cheese burger, potato salad, and baked beans. he also had a couple of beers. That night his abdomen started to bloat and he had some distention, unable to get sleep or rest. He tried to self induce vomit but was not sucess ful, later in the night he tried again and vomited 2 times. HE went to work today, and in the AM started having nausea and vomiting x 2 this time without induction. He was feeling well after vomiting but the feeling came back, late morning early afternoon, he vomited 4. and was having significant dry heaves. he was seen by his PCP and they did blood work which showed Acute Kidney injury , he was therefore sent to the ER for fu rther evaluation. In ER he had 2 L fluids and POC creat was done which showed craet of 1.8, he was therefore admitted to the hospital for further management He has not passed much urine today, does not feel like passing urine even after 2 L, he admits to haveing some discomfort in the abdomen but feels much better than yesterday. HE denies using alleve or other nsaids otherwise complaint with his medication. Review of systems: CONSTITUTIONAL: No weight loss, fever, chills, weakness or fatigue. HEENT: Eyes: No visual loss, blurred vision, double vision or yellow sclerae. Ears, Nose, Throat: No hearing loss, sneezing, congestion, runny nose or sore throat. SKIN: No rash or itching. CARDIOVASCULAR: No chest pain, chest pressure or chest discomfort. No palpitations or edema. RESPIRATORY: No shortness of breath, cough or sputum. GASTROINTESTINAL: nausea and vomiting present, present constipation, abdominal soreness present, no blood in stools or vomitus. GENITOURINARY: Denies Burning on urination. Blood in urine, or foul smelling urine NEUROLOGICAL: No headache, dizziness, syncope, paralysis, tremors, numbness or tingling in the extremities. No change in bowel or bladder control. MUSCULOSKELETAL: No muscle, back pain, joint pain or stiffness. HEMATOLOGIC: No bleeding or bruising. No enlarged nodes PSYCHIATRIC: No depression or anxiety. ENDOCRINOLOGIC: No reports of sweating, cold or heat intolerance. No polyuria or polydipsia. ALLERGIES: No hives, eczema or rhinitis. Skin: No rash, no jaundice, cyanosis or pallor. Medical - H&P: [facility] Medical history: Medical History (Last Updated 12/14/16 @ 21:09 by Iron Thurston MD) Urinary tract infection (Acute) New onset atrial fibrillation (Acute) Atrial fibrillation with RVR (Acute) HTN HLD Gout GERD Pertinent family history: mother with cad, chf uncle with colon cancer. Social history: ex smoker 1-2 beers a day no recreational [place] Medical - H&P: Meds Home Medications Medication Instructions Recorded Confirmed Type Allopurinol [Zylopriim] 300 mg PO ONCE 08/29/16 12/14/16 History Omeprazole [Prilosec] 20 mg PO DAILY 08/29/16 12/14/16 History Metoprolol Tartrate [Lopressor] 25 mg PO BID #60 tablet 09/01/16 12/14/16 Rx Warfarin [Coumadin] 5 mg PO DAILY@1400 #30 tablet 09/01/16 12/14/16 Rx Atorvastatin Calcium 20 mg PO ONCE 12/14/16 12/14/16 History Losartan [Cozaar] 100 mg PO DAILY 12/14/16 12/14/16 History Allergies Allergy/AdvReac Type Severity Reaction Status Date / Time No Known Drug Allergies Allergy Verified 08/29/16 16:46 Medical - H&P: Exam - Constitutional Vitals: Temp Pulse Resp BP Pulse Ox 97.3 F 87 18 122/83 97 12/14/16 18:29 12/14/16 21:31 12/14/16 18:29 12/14/16 21:31 12/14/16 21:31 Exam: GENERAL: The patient is a well-developed, well-nourished in no apparent distress. Is alert and oriented x3. VITAL SIGNS: Reviewed and as noted elsewhere. HEENT: Head is normocephalic and atraumatic. Extraocular muscles are intact. Pupils are equal, round. Nares appeared normal. Mouth appears any without lesions. Mucous membranes are dry. NECK: Normal to inspection, Supple, No lymphadenopathy or thyromegaly. LUNGS: Air entry equal on both sides, no wheezing, crackles or rhonchi noted. No accessory muscles of respiration HEART: Regular rate and rhythm normal, S1 and S2 heard, no Gallop, S3 or Rub Noted, No Gross murmur heard. ABDOMEN: Soft, nontender, and nondistended. Positive bowel sounds. No hepatosplenomegaly was noted. EXTREMITIES: No cyanosis, clubbing, rash, lesions or edema. NEUROLOGIC: Cranial nerves II through XII are grossly intact. Motor and Sensory System Grossly Intact PSYCHIATRIC: Normal affect, Normal Mood. Appropriate Behavior. SKIN: No ulceration or wounds noted, No jaundice, No rash noted. Medical - H&P: Reslt - Labs CBC & Chem 7: 12/14/16 20:30 12/14/16 20:30 Medical - H&P: A/P - Narrative A/P Narrative: A/P Food poisoning/ Gastroenteritis: Should be self limiting, treat conservatively with iv famotine, IV fluids. Prn antu nausea meds Acute renal failure: creat 1.8, pre renal, IV fluids for now, monitor urine output. check ua, cbc, cmp, urine na, urine creat, urine prot creat ratio. afib: HR stable, bp stable on coumadin, check INR, continue beta blockers HTN: Hold katerine for now given renal failure, resume once it improves. HLD continue statin patient had h/o LN in abdomen due to infection in 08/26, advised to get follow up CT as outpatient. DVT on coumadin Diet regular Full code.
[2016-12-14 22:37] LABS: Basophils # (Auto) 0 K/mcL (0.0-0.3); Basophils % (Auto) 0.1 % (0.0-2.0); Eosinophils # (Auto) 0.1 K/mcL (0.0-0.7); Eosinophils % (Auto) 0.4 % (0.0-7.0); Granulocytes % (Auto) 82.3 % (38.0-78.0); Lymphocytes % (Auto) 8.5 % (15.5-49.0); Mean Cell Volume 98.5 fL (80.0-100.0); Mean Corpuscular HGB Conc 33.9 g/dL (31.0-36.0); Mean Corpuscular Hemoglobin 33.4 pg (26.0-34.0); Monocytes # (Auto) 1.1 K/mcL (0.1-0.9); Monocytes % (Auto) 8.7 % (1.0-12.0); Platelet Count 183 K/mcL (140-440); RBC 4.57 M/mcL (4.50-5.90); Red Cell Distribution Width 13.5 % (11.5-14.5)
[2016-12-14] MEDS ORDERED: ONDANSETRON 4 MG/2 ML VIAL ONE (22:45)
[2016-12-14 22:55] LABS: ALT/SGPT 26 U/l (0-40); Albumin 3.9 gm/dL (3.2-5.2); Albumin/Globulin Ratio 1.6 (1.0-2.3); Alkaline Phosphatase 63 U/L (39-117); Bilirubin,Direct < 0.2 mg/dL (0.0-0.3); Blood Urea Nitrogen 24 mg/dl (8-23); Gamma Glutamyl Transpeptidase 141 U/L (8-61); Magnesium 2.1 mg/dL (1.6-2.5); Uric Acid 5.1 mg/dL (2.5-8.0)
[2016-12-14] MEDS: FAMOTIDINE/PF 20 MG/2 ML VIAL IV SCH (23:06)
[2016-12-14] MEDS: METOPROLOL TARTRATE 25 MG TABLET PO SCH (23:06)
[2016-12-14] MEDS: HEPARIN 5,000 UNIT/ML VIAL SQ SCH (23:07)
[2016-12-15 00:23] LABS: Appearance,Urine HAZY; Bacteria,Urine 0 /hpf (0); Bilirubin,Urine NEG (NEG); Color,Urine YELLOW; Glucose,Urine (UA) NEGATIVE (NEG); Leukocyte Esterase,Urine NEG /uL (NEG); Mucus,Urine FEW /hpf (0); Nitrate,Urine NEG (NEG); Protein,Urine 30 mg/dL (NEG); Specific Gravity,Urine 1.017 (1.000-1.035); Urine Amorphous Crystals FEW /hpf (0); Urine Blood NEG mg/dL (<0.03); Urine Hyaline Cast 32 /lpf (0-2); Urine RBC < 1 /hpf (0-1); Urine Squamous Epithelial Cell 0 /hpf (0-4); Urine Transitional Epi Cells < 1 /hpf (0-2); Urine WBC 2 /hpf (0-4); Urobilinogen,Urine NEG (NEG)
[2016-12-15 06:02] LABS: Basophils # (Auto) 0 K/mcL (0.0-0.3); Basophils % (Auto) 0.4 % (0.0-2.0); Eosinophils # (Auto) 0.1 K/mcL (0.0-0.7); Eosinophils % (Auto) 1.2 % (0.0-7.0); Granulocytes % (Auto) 72.4 % (38.0-78.0); Lymphocytes # (Auto) 1.4 K/mcL (1.5-4.8); Lymphocytes % (Auto) 19.2 % (15.5-49.0); Mean Cell Volume 98.7 fL (80.0-100.0); Mean Corpuscular HGB Conc 34.2 g/dL (31.0-36.0); Mean Corpuscular Hemoglobin 33.8 pg (26.0-34.0); Monocytes # (Auto) 0.5 K/mcL (0.1-0.9); Monocytes % (Auto) 6.8 % (1.0-12.0); Platelet Count 149 K/mcL (140-440); RBC 4.34 M/mcL (4.50-5.90); Red Cell Distribution Width 13.4 % (11.5-14.5)
[2016-12-15 06:05] LABS: ALT/SGPT 21 U/l (0-40); Albumin 3.5 gm/dL (3.2-5.2); Albumin/Globulin Ratio 1.8 (1.0-2.3); Alkaline Phosphatase 55 U/L (39-117); Bilirubin,Direct < 0.2 mg/dL (0.0-0.3); Blood Urea Nitrogen 19 mg/dl (8-23); Gamma Glutamyl Transpeptidase 113 U/L (8-61); Magnesium 2.1 mg/dL (1.6-2.5); Uric Acid 4.6 mg/dL (2.5-8.0)
[2016-12-15] MEDS: 0.9 % SODIUM CHLORIDE 1,000 ML IV SCH (06:30)
[2016-12-15] MEDS: 0.9 % SODIUM CHLORIDE 10 ML SYRINGE IV SCH (06:30)
[2016-12-15] MEDS ORDERED: OMEPRAZOLE 20 MG CAPSULE PO SCH (07:30)
[2016-12-15] MEDS: FAMOTIDINE/PF 20 MG/2 ML VIAL IV SCH (09:08)
[2016-12-15] MEDS: METOPROLOL TARTRATE 25 MG TABLET PO SCH (09:08)
[2016-12-15] MEDS: HEPARIN 5,000 UNIT/ML VIAL SQ SCH (09:09)
--- NOTE | 2016-12-15 09:41 | Discharge Summary ---
Medical - DS: Prov Patient information: Note initiated : 12/15/16 at 9:39 am Service Date, if different from initiated Date: [] Patient: Panda Meyer 61 y/o M admitted on 12/14/16 for bloating, nausea, vomitting. Chief Complaint: [] Date of admission: 12/14/16 21:53 Discharge date: 12/15/16 Primary care physician: Justo Conner Admitting clinician: David Gipson Discharging clinician: David Gipson Medical - DS: Meds - Discharge Medications Active and Home Medications: Home Medications Allopurinol [Zylopriim] 300 mg PO ONCE 08/29/16 [History Confirmed 12/14/16 Last Taken 12/14/16 08:00] Omeprazole [Prilosec] 20 mg PO DAILY 08/29/16 [History Confirmed 12/14/16 Last Taken 12/14/16 08:00] Metoprolol Tartrate [Lopressor] 25 mg PO BID #60 tablet 09/01/16 [Rx Confirmed 12/14/16 Last Taken 12/14/16 08:00] Warfarin [Coumadin] 5 mg PO DAILY@1400 #30 tablet 09/01/16 [Rx Confirmed Last Taken 12/14/16 18:00] Atorvastatin Calcium 20 mg PO ONCE 12/14/16 [History Confirmed 12/14/16 Last Taken 12/14/16 08:00] Losartan [Cozaar] 100 mg PO DAILY 12/14/16 [History Confirmed 12/14/16 Last Taken 12/14/16 08:00] Medical - DS: Hosp Hospital course: Mr. Meyer is a 61 year old Male with h/o afib, htn, hld presented to the ER with nausea and vomiting, dehydration and acute kidney injury after consuming exess food and ? food poisioning. Nausea and Vomiting: Patient nausea and vomiting was improving at the time of admission, he was able to tolerate po but still had some GI upset, he was treated symptomatically with zofran with good response. GI exam was unremarkable , XRay abdo did not show any obstruction. Acute Kindey INjury: Due to dehydration, nausea and vomiting, pre renal in nature, IV fluids helped with same, this am his creat was 1.0 back at baseline. Afib, hr ok, inr was subtherapeutic, he will continue his coumadin and follow up with his pcp fo further titration fo his coumadin dose. The patient at discharge was ambulatory, tolerating po well, and was back at baseline status, he will be discharged home with pcp follow up. No changes in home med list has been done. Discharge diagnosis: Acute renal failure, nausea and vomiting. - Time Spent with Patient Total time spent providing and/or coordinating discharge services: Less than 30 minutes Medical - DS: Exam - Constitutional Vitals: Vital Signs Temp Pulse Resp BP Pulse Ox 12/15/16 06:50 96.3 F L 20 106/79 96 12/15/16 04:00 97.2 F 71 16 133/94 96 12/14/16 23:46 97.0 F 83 16 104/67 90 Intake and Output 12/14/16 12/15/16 12/15/16 21:59 05:59 13:59 Intake Total 250 / 250 1000 / 1000 Output Total 200 / 200 Balance 50 / 50 1000 / 1000 Intake: IV 1000 / 1000 Sodium Chloride 0.9% 1, 1000 / 1000 000 ml @ 125 mls/hr IV . Q8H ESTHER Rx#:[id number] Oral 250 / 250 Output: Void Amount 200 / 200 Other: # Bowel Movements 1 Additional comments: Constitutional; Afebrile, cooperative, alert, not in distress. Eyes- No icterus, , No periorbital swelling Ears- Ext ear normal, hearing normal to conversation. Neck- Midline trachea, supple Respiratory system: Air Entry equal on both sides, No crackles or wheezing, no rhonchi. CVS- Rate rhythm irregular, S1,S2 heard, no gallop, no rub. 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 Medical - DS: Data Labs on day of discharge: Labs from last 24 hours 12/15/16 12/15/16 12/15/16 04:58 04:58 04:58 WBC 7.5 RBC 4.34 L Hgb 14.7 Hct 42.9 MCV 98.7 MCH 33.8 MCHC 34.2 RDW 13.4 Plt Count 149 MPV 7.8 Gran % 72.4 Lymph % (Auto) 19.2 Piatt % (Auto) 6.8 Eos % (Auto) 1.2 Baso % (Auto) 0.4 Gran # 5.4 Lymph # (Auto) 1.4 L Piatt # (Auto) 0.5 Eos # (Auto) 0.1 Baso # (Auto) 0 PT 17.6 H INR 1.4 H Sodium 139 Potassium 4.3 Chloride 104 Carbon Dioxide 25 Anion Gap 10.0 BUN 19 Creatinine 1.0 GFR Calculation 80 Glucose 95 Uric Acid 4.6 Calcium 8.0 L Phosphorus 2.9 Magnesium 2.1 Total Bilirubin 0.8 Direct Bilirubin < 0.2 GGT 113 H AST 25 ALT 21 Alkaline Phosphatase 55 Lactate Dehydrogenase 176 Total Protein 5.5 L Albumin 3.5 Globulin 2.0 L Albumin/Globulin Ratio 1.8 Triglycerides 157 H Urine Color Urine Appearance Urine pH Ur Specific [place] Urine Protein Urine Glucose (UA) Urine Ketones Urine Occult Blood Urine Nitrate Urine Bilirubin Urine Urobilinogen Ur Leukocyte Esterase Urine RBC Urine WBC Ur Squamous Epith Cells Ur Transition Epith Cell Amorphous Crystals Urine Bacteria Hyaline Casts Urine Mucus Ur Culture Indicated? Ur Random Creatinine Ur Random Sodium 12/14/16 12/14/16 23:39 23:36 WBC RBC Hgb Hct MCV MCH MCHC RDW Plt Count MPV Gran % Lymph % (Auto) Piatt % (Auto) Eos % (Auto) Baso % (Auto) Gran # Lymph # (Auto) Piatt # (Auto) Eos # (Auto) Baso # (Auto) PT INR Sodium Potassium Chloride Carbon Dioxide Anion Gap BUN Creatinine GFR Calculation Glucose Uric Acid Calcium Phosphorus Magnesium Total Bilirubin Direct Bilirubin GGT AST ALT Alkaline Phosphatase Lactate Dehydrogenase Total Protein Albumin Globulin Albumin/Globulin Ratio Triglycerides Urine Color Yellow Urine Appearance Hazy Urine pH 6.0 Ur Specific [place] 1.017 Urine Protein 30 A Urine Glucose (UA) Negative Urine Ketones Neg Urine Occult Blood Neg Urine Nitrate Neg Urine Bilirubin Neg Urine Urobilinogen Neg Ur Leukocyte Esterase Neg Urine RBC < 1 Urine WBC 2 Ur Squamous Epith Cells 0 Ur Transition Epith Cell < 1 Amorphous Crystals Few A Urine Bacteria 0 Hyaline Casts 32 H Urine Mucus Few Ur Culture Indicated? No Ur Random Creatinine 185.0 Ur Random Sodium 77 Medical - DS: A/P - Patient/Caregiver Discharge Instructions Activity: as per physical therapy Diet: Regular Diet Additional Instructions: Keep self well hydrated Follow up with your PCP in 7 days You need to consider getting a CT Abdomen and pelvis to reevaluate the Lymph nodes noted on your Abdominal CT in August Go to the ER if any worsening nausea or vomiting, or any new concerning symptom. Take some OTC stool softeners to help your constipation. - Follow up Plan Follow up with: Justo Conner DO [Primary Care Provider] - 12/22/16 10:30 am Disposition: Home, Self-Care Prognosis: Fair Rehab Potential: Fair I certify that the patient requires SNF services: No Overall status at discharge: patient is back to baseline
[2016-12-15] MEDS ORDERED: WARFARIN 5 MG TABLET PO SCH (14:00)
== END 2016-12-15 11:15 | disposition home or self-care (01) ==
LOC: ED 18:27 → MEDSUR 18:27
PROVIDERS: ADMIT Internal Medicine; ATTEND Internal Medicine